=== PATIENT | male | born 1960 | race Caucasian/White ===

== ENCOUNTER 2020-09-28 09:24 | Day surgery (SDC) | payer OTHER ==
[2020-09-25 12:30] VITALS: BMI 30.1
[2020-09-28 10:29] VITALS: TEMP 98.5
[2020-09-28] MEDS ORDERED: LIDOCAINE 1% (10MG/ML) FOR IV START INTRADERMA ONE (10:31)
[2020-09-28] MEDS ORDERED: LACTATED RINGERS 1,000 ML IV ONE (10:31)
[2020-09-28] MEDS ORDERED: fentaNYL (PF) 50 MCG/ML 2 ML AMP ONE (11:05)
[2020-09-28] MEDS ORDERED: PROPOFOL 10 MG/ML 20 ML VIAL IV ONE (11:05)
[2020-09-28] MEDS ORDERED: LIDOCAINE 1% INJ 10MG/ML (20 ML MDV) ONE (11:05)
--- NOTE | 2020-09-28 11:36 | P.PCN ---
Date of Procedure: 09/28/20 Description of Procedure: BRIEF HISTORY: Patient is a 60-year-old male presenting for outpatient colonoscopy for screening for malignant neoplasm of the colon. He reports multiple colonoscopies in the past. He does report a prior history of high-risk colon polyps. PROCEDURE PERFORMED: Colonoscopy. PREOPERATIVE DIAGNOSIS: Screening for malignant neoplasm in the colon, patient reports last colonoscopy 3 years ago, he reports a history of high-risk colon polyps. ESTIMATED BLOOD LOSS: Minimal. IV sedation per Anesthesia. PROCEDURE: After informed consent was obtained, the patient, was brought into the endoscopy unit. IV sedation was administered by Anesthesia under continuous monitoring. Digital rectal examination was normal. Initially the Olympus CF-190 flexible video colonoscope was then inserted in the rectum, gradually advanced into the cecum without any difficulty. Careful examination was performed as the scope was gradually being withdrawn. Ileocecal valve and the appendiceal orifice were visualized and appeared normal. Prep was excellent. Mucosa of the cecum, asce nding colon, transverse colon, descending colon, sigmoid colon, and rectum appeared normal. Retroflexion was performed in the rectum and no lesions were seen, moderate internal hemorrhoids. The patient tolerated the procedure well. IMPRESSION: Normal-appearing colon from rectum to cecum. Internal hemorrhoids. RECOMMENDATIONS: Findings of this examination were discussed with the patient and his family. Okay to resume diet. Okay to resume medications. Would recommend repeat colonoscopy in 5 years for history of high risk colon polyps.
[2020-09-28 12:05] VITALS: BP 140/84; PULSE 59; RESP 16
== END 2020-09-28 12:15 | disposition home or self-care (01) ==
LOC: ORWHC2ENDO 09:24
PROVIDERS: ATTEND Internal Medicine
DX: Z12.11 Encounter for screening for malignant neoplasm of colon (principal); K64.8 Other hemorrhoids; Z86.010 Personal history of colon polyps; Z88.0 Allergy status to penicillin; Z79.02 Long term (current) use of antithrombotics/antiplatelets; Z79.899 Other long term (current) drug therapy; Z98.890 Other specified postprocedural states
CPT/HCPCS: J2001; J3010; J2704; G0105

== ENCOUNTER → 2022-01-03 | Outpatient (CLI) | payer OTHER ==
--- NOTE | 2022-01-03 16:23 | US ---
EXAMINATION TYPE: US abdomen complete DATE OF EXAM: 01/03/2022 COMPARISON: NONE CLINICAL HISTORY: 61-year-old male R79.9 abd blood chemistry. Abnormal labs, pt has no other complain ts at this time TECHNIQUE: Multiple sonographic images of the abdomen are obtained. FINDINGS: EXAM MEASUREMENTS: Liver Length: 17.2 cm Gallbladder Wall: 0.3 cm CBD: 0.6 cm Spleen: 14.4 cm Right Kidney: 12.3 x 6.1 x 5.3 cm Left Kidney: 13.1 x 5.8 x 5.2 cm Pancreas: Obscured by bowel gas Liver: Markedly coarsened and heterogeneous parenchyma. This makes assessment for focal lesions diffi cult. Gallbladder: Appeared distended, wall thickness upper limits of normal, possible small stones near n hortencia Evidence for sonographic Amaya's sign: No CBD: Borderline caliber Spleen: Enlarged Right Kidney: wnl, lower pole gassed out Left Kidney: wnl Upper IVC: Difficult to visualize due to overlying bowel gas and coarse liver Abd Aorta: Obscured by overlying bowel gas IMPRESSION: 1. Markedly heterogeneous and coarsened liver parenchyma. Correlate for nonspecific hepatocellular di sease or cirrhosis. The degree of heterogeneity makes it difficult to assess for underlying focal les ions. 2. Hydropic gallbladder. Borderline wall thickness and some possible small stones at the neck of the gallbladder. The sonographic Amaya sign is reportedly negative. Findings may represent chronic oswald cystitis or fasting state. Consider HIDA scan if symptomatic. 3. Splenomegaly. In the setting of cirrhosis/liver disease, this could reflect concurrent portal veno us hypertension. Appropriate further workup recommended.
== END | disposition home or self-care (01) ==
LOC: RADUSWWP 14:02
PROVIDERS: ATTEND Family Medicine
DX: R16.1 Splenomegaly, not elsewhere classified (principal); K82.1 Hydrops of gallbladder; K76.89 Other specified diseases of liver
CPT/HCPCS: 76700

== ENCOUNTER → 2022-04-05 | Outpatient (CLI) | payer OTHER ==
[2022-04-05 18:46] LABS: HCT 38.2 % (39.6-50.0); HGB 13.3 g/dL (13.0-17.0); MCH 38.7 pg (27.0-32.0); MCHC 34.8 g/dL (32.0-37.0); Mean Platelet Volume 10.6 fL (9.5-12.2); NRBC Per 100 WBC 0 /100 WBCS (0.0-0.0); Platelet Count 124 X 10*3/uL (140-440); RBC 3.44 X 10*6/uL (4.40-5.60); RDW 12.9 % (11.5-14.5); WBC 5.27 X 10*3/uL (4.50-10.00)
[2022-04-05 18:55] LABS: Hepatitis B Surface Antigen Nonreactive (Nonreactive); Hepatitis C IgG Antibody Nonreactive (Nonreactive)
[2022-04-05 19:13] LABS: African American GFR (CKD) 113.1 (60.0-200.0); Albumin 3.2 g/dL (3.8-4.9); Albumin/Globulin Ratio 0.67 (1.60-3.17); Anion Gap 10.6 mmol/L (10.00-18.00); BUN/Creat Ratio 10.43 Ratio (12.00-20.00); Blood Urea Nitrogen 8.3 mg/dL (9.0-27.0); Carbon Dioxide 25.5 mmol/L (20.0-27.5); Globulin 4.7 g/dL (1.6-3.3); Non-African American GFR(CKD) 97.6 (60.0-200.0); Total Bilirubin 5.8 mg/dL (0.30-1.20); Total Protein 7.9 g/dL (6.2-8.2)
[2022-04-05 20:04] LABS: Basophils # (A) 0.03 X 10*3/uL (0.00-0.10); Basophils % (A) 0.6 %; Eosinophils # (A) 0.12 X 10*3/uL (0.04-0.35); Eosinophils % (A) 2.3 %; Immature Grans, Automated 0.4 %; Lymphocytes # (A) 1.58 X 10*3/uL (0.90-5.00); Macrocytosis (M) 2+; Monocytes # (A) 0.53 X 10*3/uL (0.20-1.00); Monocytes % (A) 10.1 %; Neutrophils # (A) 2.99 X 10*3/uL (1.80-7.70); Neutrophils % (A) 56.6 %
== END | disposition home or self-care (01) ==
LOC: LABWHC1 14:27
PROVIDERS: ATTEND Internal Medicine Gastroenterology
DX: K76.0 Fatty (change of) liver, not elsewhere classified (principal); R74.01 Elevation of levels of liver transaminase levels
CPT/HCPCS: 36415; 80053; 85025; 86803; 87340

== ENCOUNTER 2023-02-12 09:44 | Inpatient (IN) | payer BC, OTHER ==
[2023-02-12] MEDS ORDERED: SODIUM CHLORIDE 0.9% 500 ML 500 ML IV ONE (10:02)
[2023-02-12 10:03] LABS: Glucose,Whole Blood 340 mg/dL (70-110)
--- NOTE | 2023-02-12 10:12 | ED ---
General Adult HPI - General Chief complaint: Altered Mental Status Stated complaint: AMS Time Seen by Provider: 02/12/23 09:55 Source: patient, family, RN notes reviewed, old records reviewed Mode of arrival: EMS Limitations: altered mental status - History of Present Illness Initial comments: This is a 62-year-old male who presents emergency department with past medical history significant for liver cancer. Patient has been treated with immunotherapy at [facility]. Patient was a drinker he quit Last February. Patient woke up this morning and was confused. Patient didn't come to bed and was noted to the was concerned when she saw him his morning he was not at his baseline. Patient himself has no complaints and he currently doesn't know wear he is but is unable to give any further history. - Related Data Home Medications Medication Instructions Recorded Confirmed Multivitamins, Thera [Multivitamin 1 tab PO DAILY 12/09/22 02/12/23 (formulary)] Insulin Aspart See Protocol SQ AC-TID 02/12/23 02/12/23 Insulin Glargine,Hum.rec.anlog 26 units SQ HS 02/12/23 02/12/23 [Lantus Solostar Pen] Mesalamine [Delzicol] 800 mg PO TID 02/12/23 02/12/23 Omeprazole [PriLOSEC] 40 mg PO DAILY 02/12/23 02/12/23 metroNIDAZOLE [metroNIDAZOLE 0.75%] 1 applic TOPICAL DAILY PRN 02/12/23 02/12/23 predniSONE See Taper PO DIRECTED 02/12/23 02/12/23 Allergies Allergy/AdvReac Type Severity Reaction Status Date / Time Penicillins Allergy Rash/Hives Verified 02/12/23 11:44 Review of Systems ROS Statement: Those systems with pertinent positive or pertinent negative responses have been documented in the HPI. ROS Other: All systems not noted in ROS Statement are negative. Past Medical History Past Medical History: Cancer, Hypertension, Skin Disorder Additional Past Medical History / Comment(s): colon polyps, liver cancer History of Any Multi-Drug Resistant Organisms: None Reported Past Surgical History: Orthopedic Surgery Additional Past Surgical History / Comment(s): left wrist, colonoscopy, paracentesis Past Anesthesia/Blood Transfusion Reactions: No Reported Reaction Past Psychological History: No Psychological Hx Reported Smoking Status: Never smoker Past Alcohol Use History: None Reported Past Drug Use History: None Reported - Past Family History Mother Family Medical History: Cancer Additional Family Medical History / Comment(s): throat General Exam - General Exam Comments Initial Comments: GENERAL: Patient is well-developed and well-nourished. Patient is nontoxic and well- hydrated and is in no acute distress. ENT: Neck is soft and supple. No significant lymphadenopathy is noted. Oropharynx is clear. Moist mucous membranes. Neck has full range of motion without eliciting any pain. EYES: The sclera icterus is present. Extraocular movements were intact and pupils were equal round and reactive to light. Eyelids were unremarkable. PULMONARY: Unlabored respirations. Good breath sounds bilaterally. No audible rales rhonchi or wheezing was noted. CARDIOVASCULAR: There is a regular rate and rhythm without any murmurs gallops or rubs. Femoral pulses are equal bilaterally ABDOMEN: Abdomen is distended consistent with ascites. states this is unchanged SKIN: Patient's skin is jaundiced NEUROLOGIC: Patient is alert and oriented 1. Cranial nerves II through XII are grossly intact. Motor and sensory are also intact. Normal speech, volume and content. Symmetrical smile. MUSCULOSKELETAL: Normal extremities with adequate strength and full range of motion. LYMPHATICS: No significant lymphadenopathy is noted PSYCHIATRIC: Unable to assess Limitations: altered mental status Course Vital Signs 02/12/23 02/12/23 09:48 12:11 Temperature 97.7 F Pulse Rate 77 67 Respiratory 19 19 Rate Blood Pressure 143/76 130/71 O2 Sat by Pulse 96 99 Oximetry Medical Decision Making - Medical Decision Making I interpret EKG EKG shows sinus rhythm 83 bpm TN interval 167 dresses 80 QT interval 359 QTC is 399. Patient's EKG shows no ST segment elevation or depression. Was pt. sent in by a medical professional or institution (, PA, [employer], urgent care, hospital, or half-way...) When possible be specific @ -No Did you speak to anyone other than the patient for history (EMS, parent, family, police, friend...)? What history was obtained from this source @ - gave all the history Did you review nursing and triage notes (agree or disagree)? Why? @ -I reviewed and agree with nursing and triage notes Were old charts reviewed (outside hosp., previous admission, EMS record, old EKG, old radiological studies, urgent care reports/EKG's, half-way records)? Report findings @ -I reviewed prior laboratory results on this patient compared to today's results Differential Diagnosis (chest pain, altered mental status, abdominal pain women, abdominal pain men, vaginal bleeding, weakness, fever, dyspnea, syncope, headache, dizziness, GI bleed, back pain, seizure, CVA, palpatations, mental health, musculoskeletal)? @ -Differential Altered Mental Status: Hypoglycemia, DKA, hypercapnia, ETOH, overdose, CO poisoning, trauma, myxedema coma, HTN encephalopathy, infection, encephalitis, psychosis, intercranial hemorrhage, hepatic encephalopathy, meningitis, CVA, this is not meant to be an all-inclusive list EKG interpreted by me (3pts min.). @ -As above X-rays interpreted by me (1pt min.). @ -Chest x-ray is interpreted by myself as no acute abnormality. CT interpreted by me (1pt min.). @ -CT of the brain was interpreted by myself I saw no acute abnormality U/S interpreted by me (1pt. min.). @ -None done What testing was considered but not performed or refused? (CT, X-rays, U/S, labs)? Why? @ -None What meds were considered but not given or refused? Why? @ -None Did you discuss the management of the patient with other professionals (professionals i.e. , PA, [employer], lab, RT, psych nurse, social insurance specialist, receiving manager, teacher, promotion officer, field nurse case manager)? Give summary @ -Spoke with Dr. Gusman she agreed to admit the patient admitted the patient I wrote admitting orders Was smoking cessation discussed for >3mins.? @ -No Was critical care preformed (if so, how long)? @ -No Were there social determinants of health that impacted care today? How? (Homelessness, low income, unemployed, alcoholism, drug addiction, t ransportation, low edu. Level, literacy, decrease access to med. care, alf, rehab)? @ -No Was there de-escalation of care discussed even if they declined (Discuss DNR or withdrawal of care, Hospice)? DNR status @ -No What co-morbidities impacted this encounter? (DM, HTN, Smoking, COPD, CAD, Cancer, CVA, ARF, Chemo, Hep., AIDS, mental health diagnosis, sleep apnea, morbid obesity)? @ -None Was patient admitted / discharged? Hospital course, mention meds given and route, prescriptions, significant lab abnormalities, going to OR and other pertinent info. @ -Patient had lab work done as well as CAT scan of the brain CAT scan of the brain was normal. Lab work showed an ammonia level of 45 was started at this time that his altered mental status could be directly related to that. Spoke with Dr. Gusman she agreed to admit the patient admitted the patient started patient on lactulose Undiagnosed new problem with uncertain prognosis? @ -No Drug Therapy requiring intensive monitoring for toxicity (Heparin, Nitro, Insulin, Cardizem)? @ -No Were any procedures done? @ -No Diagnosis/symptom? @ -Hepatic encephalopathy Acute, or Chronic, or Acute on Chronic? @ -Acute on chronic Uncomplicated (without systemic symptoms) or Complicated (systemic symptoms)? @ -Complicated Side effects of treatment? @ -No Exacerbation, Progression, or Severe Exacerbation? @ -Severe exacerbation. Poses a threat to life or bodily function? How? (Chest pain, [place], [place], pneumonia, PE, COPD, DKA, ARF, appy, cholecystitis, CVA, Diverticulitis, Homicidal, Yudi cidal, threat to staff... and all critical care pts) @ -No - Lab Data Result diagrams: 02/12/23 10:07 02/12/23 10:07 Lab Results 02/12/23 02/12/23 02/12/23 Range/Units 10:02 10:07 10:07 WBC 10.3 (3.8-10.6) k/uL RBC 3.42 L (4.30-5.90) m/uL Hgb 12.9 L (13.0-17.5) gm/dL Hct 39.6 (39.0-53.0) % MCV 115.5 H (80.0-100.0) fL MCH 37.7 H (25.0-35.0) pg MCHC 32.6 (31.0-37.0) g/dL RDW 15.4 (11.5-15.5) % Plt Count 80 L (150-450) k/uL MPV 8.6 Neutrophils % 87 % Lymphocytes % 6 % Monocytes % 4 % Eosinophils % 1 % Basophils % 0 % Neutrophils # 9.0 H (1.3-7.7) k/uL Lymphocytes # 0.6 L (1.0-4.8) k/uL Monocytes # 0.4 (0-1.0) k/uL Eosinophils # 0.1 (0-0.7) k/uL Basophils # 0.0 (0-0.2) k/uL Manual Slide Review Performed Macrocytosis Marked A PT 16.0 H (9.0-12.0) sec INR 1.6 H (<1.2) APTT 27.9 (22.0-30.0) sec Sodium (137-145) mmol/L Potassium (3.5-5.1) mmol/L Chloride (98-107) mmol/L Carbon Dioxide (22-30) mmol/L Anion Gap mmol/L BUN (9-20) mg/dL Creatinine (0.66-1.25) mg/dL Est GFR (CKD-EPI)AfAm (>60 ml/min/1.73 sqM) Est GFR (CKD-EPI)NonAf (>60 ml/min/1.73 sqM) Glucose (74-99) mg/dL POC Glucose (mg/dL) 340 H (70-110) mg/dL POC Glu [employer] ID [place] Calcium (8.4-10.2) mg/dL Total Bilirubin (0.2-1.3) mg/dL AST (17-59) U/L ALT (4-49) U/L Alkaline Phosphatase (38-126) U/L Ammonia (<30) umol/L Troponin I (0.000-0.034) ng/mL Total Protein (6.3-8.2) g/dL Albumin (3.5-5.0) g/dL Urine Opiates Screen (NotDetected) Ur Oxycodone Screen (NotDetected) Urine Methadone Screen (NotDetected) Ur Propoxyphene Screen (NotDetected) Ur Barbiturates Screen (NotDetected) U Tricyclic Antidepress (NotDetected) Ur Phencyclidine Scrn (NotDetected) Ur Amphetamines Screen (NotDetected) U Methamphetamines Scrn (NotDetected) U Benzodiazepines Scrn (NotDetected) Urine Cocaine Screen (NotDetected) U Marijuana (THC) Screen (NotDetected) Acetone, Qual (Negative) 02/12/23 02/12/23 02/12/23 Range/Units 10:07 10:07 10:07 WBC (3.8-10.6) k/uL RBC (4.30-5.90) m/uL Hgb (13.0-17.5) gm/dL Hct (39.0-53.0) % MCV (80.0-100.0) fL MCH (25.0-35.0) pg MCHC (31.0-37.0) g/dL RDW (11.5-15.5) % Plt Count (150-450) k/uL MPV Neutrophils % % Lymphocytes % % Monocytes % % Eosinophils % % Basophils % % Neutrophils # (1.3-7.7) k/uL Lymphocytes # (1.0-4.8) k/uL Monocytes # (0-1.0) k/uL Eosinophils # (0-0.7) k/uL Basophils # (0-0.2) k/uL Manual Slide Review Macrocytosis PT (9.0-12.0) sec INR (<1.2) APTT (22.0-30.0) sec Sodium 135 L (137-145) mmol/L Potassium 4.3 (3.5-5.1) mmol/L Chloride 100 (98-107) mmol/L Carbon Dioxide 28 (22-30) mmol/L Anion Gap 7 mmol/L BUN 30 H (9-20) mg/dL Creatinine 0.75 (0.66-1.25) mg/dL Est GFR (CKD-EPI)AfAm >90 (>60 ml/min/1.73 sqM) Est GFR (CKD-EPI)NonAf >90 (>60 ml/min/1.73 sqM) Glucose 357 H (74-99) mg/dL POC Glucose (mg/dL) (70-110) mg/dL POC Glu [employer] ID Calcium 8.9 (8.4-10.2) mg/dL Total Bilirubin 10.7 H (0.2-1.3) mg/dL AST 85 H (17-59) U/L ALT 109 H (4-49) U/L Alkaline Phosphatase 200 H (38-126) U/L Ammonia 45 H (<30) umol/L Troponin I (0.000-0.034) ng/mL Total Protein 7.3 (6.3-8.2) g/dL Albumin 3.3 L (3.5-5.0) g/dL Urine Opiates Screen Not Detected (NotDetected) Ur Oxycodone Screen Not Detected (NotDetected) Urine Methadone Screen Not Detected (NotDetected) Ur Propoxyphene Screen Not Detected (NotDetected) Ur Barbiturates Screen Not Detected (NotDetected) U Tricyclic Antidepress Not Detected (NotDetected) Ur Phencyclidine Scrn Not Detected (NotDetected) Ur Amphetamines Screen Not Detected (NotDetected) U Methamphetamines Scrn Not Detected (NotDetected) U Benzodiazepines Scrn Not Detected (NotDetected) Urine Cocaine Screen Not Detected (NotDetected) U Marijuana (THC) Screen Not Detected (NotDetected) Acetone, Qual Negative (Negative) 02/12/23 Range/Units 10:07 WBC (3.8-10.6) k/uL RBC (4.30-5.90) m/uL Hgb (13.0-17.5) gm/dL Hct (39.0-53.0) % MCV (80.0-100.0) fL MCH (25.0-35.0) pg MCHC (31.0-37.0) g/dL RDW (11.5-15.5) % Plt Count (150-450) k/uL MPV Neutrophils % % Lymphocytes % % Monocytes % % Eosinophils % % Basophils % % Neutrophils # (1.3-7.7) k/uL Lymphocytes # (1.0-4.8) k/uL Monocytes # (0-1.0) k/uL Eosinophils # (0-0.7) k/uL Basophils # (0-0.2) k/uL Manual Slide Review Macrocytosis PT (9.0-12.0) sec INR (<1.2) APTT (22.0-30.0) sec Sodium (137-145) mmol/L Potassium (3.5-5.1) mmol/L Chloride (98-107) mmol/L Carbon Dioxide (22-30) mmol/L Anion Gap mmol/L BUN (9-20) mg/dL Creatinine (0.66-1.25) mg/dL Est GFR (CKD-EPI)AfAm (>60 ml/min/1.73 sqM) Est GFR (CKD-EPI)NonAf (>60 ml/min/1.73 sqM) Glucose (74-99) mg/dL POC Glucose (mg/dL) (70-110) mg/dL POC Glu [employer] ID Calcium (8.4-10.2) mg/dL Total Bilirubin (0.2-1.3) mg/dL AST (17-59) U/L ALT (4-49) U/L Alkaline Phosphatase (38-126) U/L Ammonia (<30) umol/L Troponin I <0.012 (0.000-0.034) ng/mL Total Protein (6.3-8.2) g/dL Albumin (3.5-5.0) g/dL Urine Opiates Screen (NotDetected) Ur Oxycodone Screen (NotDetected) Urine Methadone Screen (NotDetected) Ur Propoxyphene Screen (NotDetected) Ur Barbiturates Screen (NotDetected) U Tricyclic Antidepress (NotDetected) Ur Phencyclidine Scrn (NotDetected) Ur Amphetamines Screen (NotDetected) U Methamphetamines Scrn (NotDetected) U Benzodiazepines Scrn (NotDetected) Urine Cocaine Screen (NotDetected) U Marijuana (THC) Screen (NotDetected) Acetone, Qual (Negative) Disposition Clinical Impression: Hepatic encephalopathy Disposition: ADMITTED IP TO THIS HOSP Condition: Good Referrals: Corby Loo DO [Primary Care Provider] - 1-2 days Time of Disposition: 13:15
[2023-02-12 10:18] LABS: Basophils % (A) 0 %; Eosinophils # (A) 0.1 k/uL (0-0.7); Eosinophils % (A) 1 %; HCT 39.6 % (39.0-53.0); HGB 12.9 gm/dL (13.0-17.5); Lymphocytes # (A) 0.6 k/uL (1.0-4.8); Lymphocytes % (A) 6 %; MCH 37.7 pg (25.0-35.0); MCHC 32.6 g/dL (31.0-37.0); MCV 115.5 fL (80.0-100.0); Macrocytosis Marked; Mean Platelet Volume 8.6; Monocytes # (A) 0.4 k/uL (0-1.0); Monocytes % (A) 4 %; Neutrophils % (A) 87 %; RBC 3.42 m/uL (4.30-5.90); RDW 15.4 % (11.5-15.5); WBC 10.3 k/uL (3.8-10.6)
[2023-02-12 10:31] LABS: ALT 109 U/L (4-49); AST 85 U/L (17-59); African American GFR (CKD) >90 (>60 ml/min/1.73 sqM); Albumin 3.3 g/dL (3.5-5.0); Alkaline Phosphatase 200 U/L (38-126); Anion Gap 7 mmol/L; Blood Urea Nitrogen 30 mg/dL (9-20); Calcium 8.9 mg/dL (8.4-10.2); Carbon Dioxide 28 mmol/L (22-30); Chloride 100 mmol/L (98-107); Glucose 357 mg/dL (74-99); Non-African American GFR(CKD) >90 (>60 ml/min/1.73 sqM); Potassium 4.3 mmol/L (3.5-5.1); Sodium 135 mmol/L (137-145); Total Bilirubin 10.7 mg/dL (0.2-1.3); Total Protein 7.3 g/dL (6.3-8.2)
[2023-02-12 10:39] LABS: INR 1.6 (<1.2); Partial Thromboplastin Time 27.9 sec (22.0-30.0)
--- NOTE | 2023-02-12 10:46 | XR ---
EXAMINATION TYPE: XR chest 2V DATE OF EXAM: 02/12/2023 COMPARISON: None HISTORY: 62-year-old male confusion, altered mental status TECHNIQUE: AP stretcher and lateral views FINDINGS: Patient rotated towards the right altering the normal cardiac mediastinal contours. Heart likely bord mohinder enlarged. There are small to moderate right and small left pleural effusions. Interstitial pro minence noted. IMPRESSION: [id number] right and small left pleural effusions with adjacent atelectasis and/or consolidati on. Given interstitial prominence, correlate for possible CHF as an etiology.
--- NOTE | 2023-02-12 10:55 | CT ---
EXAMINATION TYPE: CT brain wo con DATE OF EXAM: 02/12/2023 COMPARISON: None HISTORY: 62-year-old male AMS. RECENTLY DIAGNOSED W/LIVER CA TECHNIQUE: Examination was done in axial plane without intravenous contrast. Coronal and sagittal r econstructions performed. CT DLP: 1267.4 mGycm Automated exposure control for dose reduction was used. FINDINGS: There is no evidence of acute intracranial hemorrhage, acute ischemic changes, mass, mass-effect, or extra-axial fluid collection. There is no effacement of cerebral sulci or basal subarachnoid cister ns. There is no hydrocephalus. There is no midline shift. Fiore-white matter distinction is preserv ed. Atherosclerotic calcifications in the carotid siphons and proximal V4 segment left vertebral artery. There is moderate volume loss along the bilateral cerebral convexities. Mild patchy white matter hypo densities in both cerebral hemispheres. Leftward nasal septal deviation. The sinuses and mastoid air cells are well pneumatized. Orbits and globes are intact. IMPRESSION: Moderate cerebral atrophy and mild burden of chronic small vessel ischemic disease. No acute intracra nial abnormality seen.
[2023-02-12 11:26] LABS: Platelet Count 80 k/uL (150-450)
[2023-02-12 11:32] LABS: Amphetamine Screen,Urine Not Detected (NotDetected); Barbiturate Screen,Urine Not Detected (NotDetected); Benzodiazepines Screen,Urine Not Detected (NotDetected); Cocaine Screen,Urine Not Detected (NotDetected); Methadone Screen, Urine Not Detected (NotDetected); Opiate Screen,Urine Not Detected (NotDetected); Oxycodone Screen, Urine Not Detected (NotDetected); Phencyclidine Screen,Urine Not Detected (NotDetected); Tricyclic Antidepressant,Urine Not Detected (NotDetected); Urn Cannabinoid Scrn Not Detected (NotDetected)
[2023-02-12] MEDS ORDERED: SODIUM CHLORIDE 0.9% 1,000 ML IV ONE (13:15)
[2023-02-12] MEDS ORDERED: DEXTROSE 50% SYRINGE 50 ML IVP PRN ×2 (14:47)
[2023-02-12] MEDS ORDERED: NALOXONE 0.4 MG/ML 1 ML VIAL IV PRN (14:50)
[2023-02-12] MEDS ORDERED: ONDANSETRON 4 MG/2 ML VIAL IVP PRN (14:50)
[2023-02-12] MEDS ORDERED: MAG HYDROX/AL HYDROX/SIMETH 30 ML CUP PO PRN (14:50)
--- NOTE | 2023-02-12 14:58 | P.HPIM ---
History of Present Illness H&P Date: 02/12/23 Patient is a 62-year-old male with PMH of liver cancer following Dr. Burgess out of [place] presents the ED for worsening confusion. Patient is currently sedated and majority of the history is obtained by his Antonio. Patient was initially diagnosed with liver cancer in October at [facility]. He has been getting his oncological treatment at [facility]. Of note, patient was recently hospitalized at [facility] from January 27 - February 02 for hyponatremia, hyperkalemia, hypermagnesemia and elevated blood glucose. He was diagnosed with diabetes mellitus and discharge home on insulin for the first time. He also underwent colonoscopy for chronic diarrhea. The is unsure what he was diagnosed with but noted that he was sent home on prednisone taper and mesalamine which he was currently taking. He recently underwent an immunotherapy infusion (unknown medication) on . On Monday, his noted that he woke up confused and unable to recognize who she was. She initially thought that it was a hypoglycemic episode for which she gave him juice. Accu-Chek after treatment was in the 300s. Today, she noted that he was extremely confused this morning and the patient had soiled himself. This prompted her to call EMS. In the ED, his vital signs were stable. At the time of my interview he was sleeping. CBC showed hemoglobin of 12.9 and MCV of 115.5 with platelet count of 80. INR was 1.6. CMP showed sodium of 135, BUN of 30, glucose of 357, total bilirubin of 10.7, AST of 85, ALT of 109, alkaline phosphatase of 200. Troponin was less than 0.012, EKG showed sinus rhythm with ventricular rate of 83. UDS and acetone was negative. Ammonia level was 45. Chest x-ray showed small to moderate bilateral pleural effusion. CT brain showed moderate cerebral atrophy with chronic small vessel disease with no acute intracranial findings. Patient is admitted for hepatic encephalopathy. Pertinent positives and negatives as discussed in HPI, a complete review of systems was performed and all other systems are negative. General: Appears older than stated age, no distress, appears at stated age Derm: warm, dry, jaundiced Head: atraumatic, normocephalic, symmetric Eyes: no lid lag, anicteric sclera Mouth: no lip lesion, mucus membranes moist Cardiovascular: S1S2 reg, no murmur, positive posterior tibial pulse bilateral, Lungs: CTA bilateral, no rhonchi, no rales , no accessory muscle use Abdominal: soft, nontender to palpation, no guarding, hepatomegaly, distended Ext: no gross muscle atrophy, 2+ pitting bilateral lower extremity edema, no contractures Neuro: no focal neuro deficits Psych: Sleeping #Hepatic encephalopathy #Liver cancer #Transaminitis #Macrocytic anemia #Thrombocytopenia #Supratherapeutic INR #Diabetes mellitus with hyperglycemia Based on my assessment of this patient, this patient meets a high complexity level of care. I have reviewed the following oracle iam consultant notes: None. I have reviewed the results of the following tests: CBC showed hemoglobin of 12.9 and MCV of 115.5 with platelet count of 80. INR was 1.6. CMP showed sodium of 135, BUN of 30, glucose of 357, total bilirubin of 10.7, AST of 85, ALT of 109, alkaline phosphatase of 200. Troponin was less than 0.012. UDS and acetone was negative. Ammonia level was 45. I have ordered the following tests: B12, TSH and folic acid. Repeat ammonia level tomorrow morning. CBC and CMP tomorrow morning. Urinalysis with reflex to culture. I have discussed the care of this patient with the following independent historian: Case was discussed with the . Patient has short-term memory loss at baseline. This is clearly a change from his baseline. I have independently interpreted the following test below: EKG showed sinus rhythm with ventricular rate of 83. Chest x-ray showed small to moderate bilateral pleural effusion. I have discussed the management of this patient with the following physician: The case was discussed with the ED physician and decision has been made to admit the patient for workup of altered mental status. This patient has a high risk of morbidity due to the following reasons: Patient has an acute diagnosis of acute metabolic encephalopathy in the setting of advanced liver cancer and recent initiation of prednisone that poses a threat to life or bodily function. His ammonia is elevated at 45. He'll be started on lactulose 30 g by mouth 3 times a day and his ammonia level will be checked tomorrow. I will hold his prednisone as this could be worsening his mentation. I will obtain B12, TSH and folic acid. Urinalysis will be obtained. We will need to get in touch with his oncologist Dr. Ware at [facility]. Patient will be placed on fall precautions. Oncology and gastroenterology will also be consulted for further management of this patient. PT and OT will be consulted to work with this patient. His Antonio is the decision maker if he can't make decisions for himself. She would like the patient to be full code. Lovenox SQ for DVT prophylaxis. Past Medical History Past Medical History: Cancer, Hypertension, Skin Disorder Additional Past Medical History / Comment(s): colon polyps, liver cancer History of Any Multi-Drug Resistant Organisms: None Reported Past Surgical History: Orthopedic Surgery Additional Past Surgical History / Comment(s): left wrist, colonoscopy, paracentesis Past Anesthesia/Blood Transfusion Reactions: No Reported Reaction Past Psychological History: No Psychological Hx Reported Smoking Status: Never smoker Past Alcohol Use History: None Reported Past Drug Use History: None Reported - Past Family History Mother Family Medical History: Cancer Additional Family Medical History / Comment(s): throat Medications and Allergies Home Medications Medication Instructions Recorded Confirmed Type Multivitamins, Thera [Multivitamin 1 tab PO DAILY 12/09/22 02/12/23 History (formulary)] Insulin Aspart See Protocol SQ AC-TID 02/12/23 02/12/23 History Insulin Glargine,Hum.rec.anlog 26 units SQ HS 02/12/23 02/12/23 History [Lantus Solostar Pen] Mesalamine [Delzicol] 800 mg PO TID 02/12/23 02/12/23 History Omeprazole [PriLOSEC] 40 mg PO DAILY 02/12/23 02/12/23 History metroNIDAZOLE [metroNIDAZOLE 0.75%] 1 applic TOPICAL DAILY PRN 02/12/23 02/12/23 History predniSONE See Taper PO DIRECTED 02/12/23 02/12/23 History Allergies Allergy/AdvReac Type Severity Reaction Status Date / Time Penicillins Allergy Rash/Hives Verified 02/12/23 11:44 Physical Exam Vitals: Vital Signs Temp Pulse Resp BP Pulse Ox 02/12/23 14:53 97.8 F 63 19 140/71 93 L 02/12/23 12:11 67 19 130/71 99 02/12/23 09:48 97.7 F 77 19 143/76 96 Intake and Output 02/11/23 02/12/23 02/12/23 22:59 06:59 14:59 Other: Weight 73.482 kg Results CBC & Chem 7: 02/12/23 10:07 02/12/23 10:07 Labs: Abnormal Lab Results - Last 24 Hours (Table) 02/12/23 02/12/23 02/12/23 Range/Units 10:02 10:07 10:07 RBC 3.42 L (4.30-5.90) m/uL Hgb 12.9 L (13.0-17.5) gm/dL MCV 115.5 H (80.0-100.0) fL MCH 37.7 H (25.0-35.0) pg Plt Count 80 L (150-450) k/uL Neutrophils # 9.0 H (1.3-7.7) k/uL Lymphocytes # 0.6 L (1.0-4.8) k/uL Macrocytosis Marked A PT 16.0 H (9.0-12.0) sec INR 1.6 H (<1.2) Sodium (137-145) mmol/L BUN (9-20) mg/dL Glucose (74-99) mg/dL POC Glucose (mg/dL) 340 H (70-110) mg/dL Total Bilirubin (0.2-1.3) mg/dL AST (17-59) U/L ALT (4-49) U/L Alkaline Phosphatase (38-126) U/L Ammonia (<30) umol/L Albumin (3.5-5.0) g/dL 02/12/23 02/12/23 Range/Units 10:07 10:07 RBC (4.30-5.90) m/uL Hgb (13.0-17.5) gm/dL MCV (80.0-100.0) fL MCH (25.0-35.0) pg Plt Count (150-450) k/uL Neutrophils # (1.3-7.7) k/uL Lymphocytes # (1.0-4.8) k/uL Macrocytosis PT (9.0-12.0) sec INR (<1.2) Sodium 135 L (137-145) mmol/L BUN 30 H (9-20) mg/dL Glucose 357 H (74-99) mg/dL POC Glucose (mg/dL) (70-110) mg/dL Total Bilirubin 10.7 H (0.2-1.3) mg/dL AST 85 H (17-59) U/L ALT 109 H (4-49) U/L Alkaline Phosphatase 200 H (38-126) U/L Ammonia 45 H (<30) umol/L Albumin 3.3 L (3.5-5.0) g/dL
[2023-02-12] MEDS: BALSALAZIDE DISODIUM 750 MG CAPSULE PO SCH ×2 (16:34→21:14)
[2023-02-12] MEDS: LACTULOSE 20 GM/30 ML CUP PO SCH ×2 (16:34→21:14)
[2023-02-12 17:27] LABS: Glucose,Whole Blood 251 mg/dL (70-110)
[2023-02-12] MEDS: INSULIN ASPART (NovoLOG) 100 UNIT/ML VIAL SQ SCH ×2 (17:38→21:14)
[2023-02-12 20:45] LABS: Glucose,Whole Blood 175 mg/dL (70-110)
[2023-02-13 05:08] LABS: Appearance,Urine Clear (Clear); Bilirubin,Urine 1+ (Negative); Blood,Urine Negative (Negative); Color,Urine Dark Yellow; Glucose,Urine (UA) 3+ (Negative); Ketones,Urine Negative (Negative); Leukocyte Esterase,Urine Negative (Negative); Nitrite,Urine Negative (Negative); Protein,Urine Negative (Negative); Specific Gravity,Urine 1.025 (1.001-1.035)
[2023-02-13 07:34] LABS: Glucose,Whole Blood 133 mg/dL (70-110)
[2023-02-13] MEDS: INSULIN ASPART (NovoLOG) 100 UNIT/ML VIAL SQ SCH ×4 (08:00→21:06)
[2023-02-13] MEDS: PANTOPRAZOLE 40 MG TABLET PO SCH (08:41)
[2023-02-13] MEDS: BALSALAZIDE DISODIUM 750 MG CAPSULE PO SCH ×3 (08:41→21:06)
[2023-02-13] MEDS: LACTULOSE 20 GM/30 ML CUP PO SCH ×3 (08:42→21:06)
[2023-02-13] MEDS: ENOXAPARIN 40 MG/0.4 ML SYRINGE SQ SCH (08:42)
[2023-02-13 10:10] LABS: Magnesium 1.7 mg/dL (1.5-2.4)
[2023-02-13 10:11] LABS: ALT 96 U/L (10-49); AST 108 U/L (14-35); African American GFR (CKD) 107.2 (60.0-200.0); Albumin 2.8 g/dL (3.8-4.9); Alkaline Phosphatase 160 U/L (41-126); Blood Urea Nitrogen 24.3 mg/dL (9.0-27.0); Calcium 8.6 mg/dL (8.7-10.3); Carbon Dioxide 19.5 mmol/L (20.0-27.5); Chloride 105 mmol/L (96-109); Globulin 3.1 g/dL (1.6-3.3); Glucose 190 mg/dL (70-110); Non-African American GFR(CKD) 92.5 (60.0-200.0); Potassium 4.7 mmol/L (3.5-5.5); Sodium 140 mmol/L (135-145); Total Protein 5.9 g/dL (6.2-8.2); Vitamin B12 >1800.0 pg/mL (200.0-944.0)
[2023-02-13 11:45] LABS: Glucose,Whole Blood 229 mg/dL (70-110)
--- NOTE | 2023-02-13 12:21 | P.PN ---
Subjective Progress Note Date: 02/13/23 Patient is a 62-year-old male with PMH of liver cancer following Dr. Burgess out of [place] presents the ED for worsening confusion. Patient is currently sedated and majority of the history is obtained by his Antonio. Patient was initially diagnosed with liver cancer in October at [facility]. He has been getting his oncological treatment at [facility]. Of note, patient was recently hospitalized at [facility] from January 27 - February 02 for hyponatremia, hyperkalemia, hypermagnesemia and elevated blood glucose. He was diagnosed with diabetes mellitus and discharge home on insulin for the first time. He also underwent colonoscopy for chronic diarrhea. The is unsure what he was diagnosed with but noted that he was sent home on prednisone taper and mesalamine which he was currently taking. He recently underwent an immunotherapy infusion (unknown medication) on . On Monday, his noted that he woke up confused and unable to recognize who she was. She initially thought that it was a hypoglycemic episode for which she gave him juice. Accu-Chek after treatment was in the 300s. Today, she noted that he was extremely confused this morning and the patient had soiled himself. This prompted her to call EMS. In the ED, his vital signs were stable. At the time of my interview he was sleeping. CBC showed hemoglobin of 12.9 and MCV of 115.5 with platelet count of 80. INR was 1.6. CMP showed sodium of 135, BUN of 30, glucose of 357, total bilirubin of 10.7, AST of 85, ALT of 109, alkaline phosphatase of 200. Troponin was less than 0.012, EKG showed sinus rhythm with ventricular rate of 83. UDS and acetone was negative. Ammonia level was 45. Chest x-ray showed small to moderate bilateral pleural effusion. CT brain showed moderate cerebral atrophy with chronic small vessel disease with no acute intracranial findings. Patient is admitted for hepatic encephalopathy. Repeat ammonia level was elevated at 64. TSH, B12 and folate acid was within normal limits. Patient was seen and examined this morning. No acute events overnight. His is at bedside. His mentation has considerably improved during his hospitalization. He has no complaints today. General: Appears older than stated age, no distress, appears at stated age Derm: warm, dry, jaundiced Head: atraumatic, normocephalic, symmetric Eyes: no lid lag, anicteric sclera Mouth: no lip lesion, mucus membranes moist Cardiovascular: S1S2 reg, no murmur Lungs: CTA bilateral, no rhonchi, no rales , no accessory muscle use Abdominal: soft, nontender to palpation, no guarding, hepatomegaly, distended Ext: no gross muscle atrophy, 2+ pitting bilateral lower extremity edema, no contractures Neuro: no focal neuro deficits Psych: Alert and oriented 3 #Hepatic encephalopathy #Liver cancer #Transaminitis #Macrocytic anemia #Thrombocytopenia #Supratherapeutic INR #Diabetes mellitus with hyperglycemia Based on my assessment of this patient, this patient meets a moderate complexity level of care. I have reviewed the following financial planning consultant notes: None. I have reviewed the results of the following tests: CMP shows a bicarb of 19.5, glucose 190, calcium of 8.6, total bilirubin of 9.5, AST of 108, ALT of 96, alkaline phosphatase of 160. Ammonia 64. TSH 0.27. Folate greater than 20. B12 greater than 1800. Urinalysis shows 3+ glucose and 1+ bilirubin. I have ordered the following tests: Gallbladder and liver ultrasound. Repeat ammonia level tomorrow morning. I have discussed the care of this patient with the following independent historian: Case was discussed with the . Patient has short-term memory loss at baseline. His mentation has considerably improved and he is almost back to baseline. I have independently interpreted the following test below: None. I have discussed the management of this patient with the following physician: None. This patient has a moderate risk of morbidity due to the following reasons: Patient has an acute diagnosis of acute metabolic encephalopathy in the setting of advanced liver cancer and recent initiation of prednisone that poses a threat to life or bodily function. His ammonia is elevated at 64 this morning which is higher than admission. He'll be continued on lactulose 30 g by mouth 3 times a day and his ammonia level will be checked tomorrow. I will hold his prednisone as this could be worsening his mentation. B12, TSH and folic acid is within normal limits. Urinalysis negative for UTI. We will need to get in touch with his oncologist Dr. Ware at [facility]. Patient will be placed on fall prec autions. Oncology and gastroenterology will also be consulted for further management of this patient. PT and OT will be consulted to work with this patient. Anticipated discharge home tomorrow if ammonia level is trending down. His Antonio is the decision maker if he can't make decisions for himself. She would like the patient to be full code. Lovenox SQ for DVT prophylaxis. Objective - Vital Signs Vital signs: Vital Signs Temp 97.5 F L 02/13/23 11:51 Pulse 94 02/13/23 11:51 Resp 18 02/13/23 11:51 BP 129/74 02/13/23 11:51 Pulse Ox 95 02/13/23 11:51 FiO2 Intake & Output 02/12/23 02/13/23 02/13/23 18:59 06:59 18:59 Intake Total 120 200 Output Total 100 Balance 20 200 Weight 73.482 kg Intake: Oral 120 200 Output: Urine 100 Other: Voiding Method Toilet # Voids 2 # Bowel Movements 1 - Labs CBC & Chem 7: 02/12/23 10:07 02/13/23 04:22 Labs: Abnormal Lab Results - Last 24 Hours (Table) 02/12/23 02/12/23 02/12/23 Range/Units 10:07 17:26 20:27 Carbon Dioxide (20.0-27.5) mmol/L BUN/Creatinine Ratio (12.00-20.00) Ratio Glucose (70-110) mg/dL POC Glucose (mg/dL) 251 H 175 H (70-110) mg/dL Calcium (8.7-10.3) mg/dL Total Bilirubin (0.30-1.20) mg/dL AST (14-35) U/L ALT (10-49) U/L Alkaline Phosphatase (41-126) U/L Ammonia (<30) umol/L Total Protein (6.2-8.2) g/dL Albumin (3.8-4.9) g/dL Albumin/Globulin Ratio (1.60-3.17) g/dL Vitamin B12 (200.0-944.0) pg/mL Urine Glucose (UA) 3+ H (Negative) Urine Bilirubin 1+ H (Negative) 02/13/23 02/13/23 02/13/23 Range/Units 04:22 04:22 07:31 Carbon Dioxide 19.5 L (20.0-27.5) mmol/L BUN/Creatinine Ratio 27.00 H (12.00-20.00) Ratio Glucose 190 H (70-110) mg/dL POC Glucose (mg/dL) 133 H (70-110) mg/dL Calcium 8.6 L (8.7-10.3) mg/dL Total Bilirubin 9.50 H (0.30-1.20) mg/dL AST 108 H (14-35) U/L ALT 96 H (10-49) U/L Alkaline Phosphatase 160 H (41-126) U/L Ammonia 64 H (<30) umol/L Total Protein 5.9 L (6.2-8.2) g/dL Albumin 2.8 L (3.8-4.9) g/dL Albumin/Globulin Ratio 0.90 L (1.60-3.17) g/dL Vitamin B12 >1800.0 H (200.0-944.0) pg/mL Urine Glucose (UA) (Negative) Urine Bilirubin (Negative) 02/13/23 Range/Units 11:02 Carbon Dioxide (20.0-27.5) mmol/L BUN/Creatinine Ratio (12.00-20.00) Ratio Glucose (70-110) mg/dL POC Glucose (mg/dL) 229 H (70-110) mg/dL Calcium (8.7-10.3) mg/dL Total Bilirubin (0.30-1.20) mg/dL AST (14-35) U/L ALT (10-49) U/L Alkaline Phosphatase (41-126) U/L Ammonia (<30) umol/L Total Protein (6.2-8.2) g/dL Albumin (3.8-4.9) g/dL Albumin/Globulin Ratio (1.60-3.17) g/dL Vitamin B12 (200.0-944.0) pg/mL Urine Glucose (UA) (Negative) Urine Bilirubin (Negative)
[2023-02-13] MEDS ORDERED: PHYTONADIONE 5 MG in SODIUM CHLORIDE 0.9% 50 ML IVPB STA (13:05)
--- NOTE | 2023-02-13 15:14 | P.CONS ---
History of Present Illness - Reason for Consult Consult date: 02/13/23 Hepatic encephalopathy Requesting physician: Samir Aguayo - Chief Complaint Altered mental status changes - History of Present Illness This is a pleasant 62-year-old male with a past medical history including alcoholic liver disease, liver cancer diagnosed in October 2023 currently on second dose of chemo this past , patient goes every 3 weeks, recent diag nosis of diabetes mellitus who presented to the emergency department with altered mental status changes. He follows with weigher production and oncologist from [facility]. Patient was recently hospitalized at [facility] from January 27 through February 02 for elevated blood glucose, hyponatremia hyperkalemia and diarrhea. He underwent colonoscopy during that hospital stay and white states that he was told he had colitis he was started on mesalamine and prednisone in the hospital, he was sent home with a prednisone taper dose. He continues to have frequent diarrhea. Denies any nausea or vomiting. Apparently patient had become confused over the last day or so, more fatigued and weak. Patient's states that this is the first time that he's had mental status changes like this. He has had diarrhea for the last 2-3 months. Denies any blood in the stool. On admission he was noted to have elevated ammonia of 45. He was started on lactulose 30 g 3 times a day. He states he had 3 bowel movements from yesterday to today, weight states he has had additional for bowel movement. Repeat ammonia level today at 64. Patient is alert and oriented 3 currently. He is jaundiced. He denies any abdominal pain, nausea, vomiting, no chest pain or shortness of breath. He has bilateral lower extremity edema. Labs WBC 10.3 hemoglobin 12.9 hematocrit 39 platelet count 80,000 INR 1.6 sodium 140 potassium 4.7 BUN 24 creatinine 0.9 total bilirubin 9.5 AST 108 ALT 96 alkaline phosphatase 160 ammonia 64 Review of Systems REVIEW OF SYSTEMS: CARDIOPULMONARY: No chest pain or shortness of breath. Gastrointestinal: Denies abdominal pain. No nausea or vomiting. No hematemesis, coffee-ground emesis. Chronic diarrhea. No rectal bleeding, or melena. GENITOURINARY: No dysuria or hematuria. MUSCULOSKELETAL: Reports normal range of motion. Wrist pain. SKIN: No rashes. Jaundice. ENDOCRINE: No chills, fevers. No excessive weight gain or loss. No polydipsia or polyuria. PSYCHIATRIC: Unremarkable. NEUROLOGY: Altered mental status changes and weakness. Denies dizziness, headache. ENT: Vision unremarkable. CONSTITUTIONAL: Recent weight loss due to frequent diarrhea. No fever, chills, night sweats. Past Medical History Past Medical History: Cancer, Hypertension, Skin Disorder Additional Past Medical History / Comment(s): colon polyps, liver cancer History of Any Multi-Drug Resistant Organisms: None Reported Past Surgical History: Orthopedic Surgery Additional Past Surgical History / Comment(s): left wrist, colonoscopy, paracentesis Past Anesthesia/Blood Transfusion Reactions: No Reported Reaction Past Psychological History: No Psychological Hx Reported Smoking Status: Never smoker Past Alcohol Use History: None Reported Past Drug Use History: None Reported - Past Family History Mother Family Medical History: Cancer Additional Family Medical History / Comment(s): throat Father Family Medical History: Coronary Artery Disease (CAD) Medications and Allergies Home Medications Medication Instructions Recorded Confirmed Type Multivitamins, Thera [Multivitamin 1 tab PO DAILY 12/09/22 02/12/23 History (formulary)] Insulin Aspart See Protocol SQ AC-TID 02/12/23 02/12/23 History Insulin Glargine,Hum.rec.anlog 26 units SQ HS 02/12/23 02/12/23 History [Lantus Solostar Pen] Mesalamine [Delzicol] 800 mg PO TID 02/12/23 02/12/23 History Omeprazole [PriLOSEC] 40 mg PO DAILY 02/12/23 02/12/23 History metroNIDAZOLE [metroNIDAZOLE 0.75%] 1 applic TOPICAL DAILY PRN 02/12/23 02/12/23 History predniSONE See Taper PO DIRECTED 02/12/23 02/12/23 History Allergies Allergy/AdvReac Type Severity Reaction Status Date / Time Penicillins Allergy Rash/Hives Verified 02/12/23 11:44 Physical Exam Vitals: Vital Signs Temp Pulse Pulse Resp BP BP Pulse Ox 02/13/23 09:02 96 02/13/23 07:10 97.8 F 88 18 143/66 96 02/13/23 02:34 97.8 F 89 18 139/75 95 02/12/23 19:57 97.4 F L 90 20 137/74 96 02/12/23 15:34 98.2 F 79 16 147/67 97 02/12/23 14:53 97.8 F 63 19 140/71 93 L 02/12/23 12:11 67 19 130/71 99 02/12/23 09:48 97.7 F 77 19 143/76 96 Intake and Output 02/12/23 02/13/23 02/13/23 22:59 06:59 14:59 Intake Total 120 200 Output Total 100 Balance 20 200 Intake: Oral 120 200 Output: Urine 100 Other: Voiding Method Toilet # Voids 2 General appearance: The patient is alert, oriented, appears in no acute distress. HET: Head is normocephalic and atraumatic. Conjunctiva pink. Sclera icteric. Neck: Supple without lymphadenopathy. Trachea midline. Heart: S1 S2. Regular rate and rhythm. Lungs: Clear to auscultation. Abdomen: Soft, nontender, nondistended with bowel sounds. No guarding or rigidity. Skin: No rashes. Jaundice. Extremities: Normal skin color and turgor. Bilateral lower extremity pitting edema Neurological: No focal deficits. Alert and oriented x3. Results CBC & Chem 7: 02/12/23 10:07 02/13/23 04:22 Labs: Abnormal Lab Results - Last 24 Hours (Table) 02/12/23 02/12/23 02/12/23 Range/Units 10:02 10:07 10:07 RBC 3.42 L (4.30-5.90) m/uL Hgb 12.9 L (13.0-17.5) gm/dL MCV 115.5 H (80.0-100.0) fL MCH 37.7 H (25.0-35.0) pg Plt Count 80 L (150-450) k/uL Neutrophils # 9.0 H (1.3-7.7) k/uL Lymphocytes # 0.6 L (1.0-4.8) k/uL Macrocytosis Marked A PT 16.0 H (9.0-12.0) sec INR 1.6 H (<1.2) Sodium (137-145) mmol/L BUN (9-20) mg/dL Glucose (74-99) mg/dL POC Glucose (mg/dL) 340 H (70-110) mg/dL Total Bilirubin (0.2-1.3) mg/dL AST (17-59) U/L ALT (4-49) U/L Alkaline Phosphatase (38-126) U/L Ammonia (<30) umol/L Albumin (3.5-5.0) g/dL Urine Glucose (UA) (Negative) Urine Bilirubin (Negative) 02/12/23 02/12/23 02/12/23 Range/Units 10:07 10:07 10:07 RBC (4.30-5.90) m/uL Hgb (13.0-17.5) gm/dL MCV (80.0-100.0) fL MCH (25.0-35.0) pg Plt Count (150-450) k/uL Neutrophils # (1.3-7.7) k/uL Lymphocytes # (1.0-4.8) k/uL Macrocytosis PT (9.0-12.0) sec INR (<1.2) Sodium 135 L (137-145) mmol/L BUN 30 H (9-20) mg/dL Glucose 357 H (74-99) mg/dL POC Glucose (mg/dL) (70-110) mg/dL Total Bilirubin 10.7 H (0.2-1.3) mg/dL AST 85 H (17-59) U/L ALT 109 H (4-49) U/L Alkaline Phosphatase 200 H (38-126) U/L Ammonia 45 H (<30) umol/L Albumin 3.3 L (3.5-5.0) g/dL Urine Glucose (UA) 3+ H (Negative) Urine Bilirubin 1+ H (Negative) 02/12/23 02/12/23 02/13/23 Range/Units 17:26 20:27 04:22 RBC (4.30-5.90) m/uL Hgb (13.0-17.5) gm/dL MCV (80.0-100.0) fL MCH (25.0-35.0) pg Plt Count (150-450) k/uL Neutrophils # (1.3-7.7) k/uL Lymphocytes # (1.0-4.8) k/uL Macrocytosis PT (9.0-12.0) sec INR (<1.2) Sodium (137-145) mmol/L BUN (9-20) mg/dL Glucose (74-99) mg/dL POC Glucose (mg/dL) 251 H 175 H (70-110) mg/dL Total Bilirubin (0.2-1.3) mg/dL AST (17-59) U/L ALT (4-49) U/L Alkaline Phosphatase (38-126) U/L Ammonia 64 H (<30) umol/L Albumin (3.5-5.0) g/dL Urine Glucose (UA) (Negative) Urine Bilirubin (Negative) 02/13/23 Range/Units 07:31 RBC (4.30-5.90) m/uL Hgb (13.0-17.5) gm/dL MCV (80.0-100.0) fL MCH (25.0-35.0) pg Plt Count (150-450) k/uL Neutrophils # (1.3-7.7) k/uL Lymphocytes # (1.0-4.8) k/uL Macrocytosis PT (9.0-12.0) sec INR (<1.2) Sodium (137-145) mmol/L BUN (9-20) mg/dL Glucose (74-99) mg/dL POC Glucose (mg/dL) 133 H (70-110) mg/dL Total Bilirubin (0.2-1.3) mg/dL AST (17-59) U/L ALT (4-49) U/L Alkaline Phosphatase (38-126) U/L Ammonia (<30) umol/L Albumin (3.5-5.0) g/dL Urine Glucose (UA) (Negative) Urine Bilirubin (Negative) Assessment and Plan (1) Hepatic encephalopathy Narrative/Plan: This is 62-year-old male who presented with altered mental status changes labs consistent with elevated ammonia level secondary to underlying liver disease. Patient had a long-standing history of alcohol abuse with underlying liver disease with recent diagnosis of liver cancer in October 2023. Patient is being followed by oncologist and weigher production from [facility]. Patient's states patient was on lactulose 15 g twice a day, however they stopped it due to chronic diarrhea that he's been having for the last couple months duration. Patient was recently started on chemo for liver cancer, had his second dose on . During his hospitalization at [facility] he did undergo colonoscopy which patient's states that he was told he had colitis and was started on mesalamine as well as prednisone taper dose. Patient continues to have several episodes of diarrhea daily. Denies any blood in the stool. Will add Xifaxan 4 hepatic encephalopathy, continue lactulose for now. Will run stools samples and if negative for C. diff. Lactulose and continue Xifaxan. Patient to follow-up with his weigher production/oncologist. Current Visit: Yes Status: Acute Code(s): K76.82 - HEPATIC ENCEPHALOPATHY SNOMED Code(s): 43116213 (2) HCC (hepatocellular carcinoma) Current Visit: Yes Status: Acute Priority: High Code(s): C22.0 - LIVER CELL CARCINOMA SNOMED Code(s): 101107921 (3) History of alcohol abuse Current Visit: Yes Status: Acute Code(s): F10.11 - ALCOHOL ABUSE, IN REMISSION SNOMED Code(s): 540657888 (4) Hypercoagulable state Narrative/Plan: Due to underlying hepatocellular disease Current Visit: Yes Status: Acute Code(s): D68.59 - OTHER PRIMARY THROMBOPHILIA SNOMED Code(s): 62444786 Plan: 1. Continue symptomatic and supportive care 2. Continue lactulose 30 g 3 times a day, titrate 3-4 bowel movements daily 3. Add Xifaxan 550 mg twice a day 4. Stool sample for C. diff 5. Daily CBC, CMP, ammonia level, INR 6. Ultrasound of liver ordered per primary team, will also evaluate for ascites 7. Continue with recommendations from oncology Thank you for this consultation, we will continue to follow. Dr. Shalini Nichole I agree with the dictator's note, documented as a scribe by Macrina Rojo.
--- NOTE | 2023-02-13 15:16 | US ---
EXAMINATION TYPE: US gallbladder DATE OF EXAM: 02/13/2023 COMPARISON: US 2021 CLINICAL HISTORY: with liver. Pain TECHNIQUE: Multiple sonographic images of the right upper quadrant are obtained. FINDINGS: Exam done portable EXAM MEASUREMENTS: Liver Length: 12.5 cm Gallbladder Wall: 0.4 cm CBD: 0.5 cm Right Kidney: 12.0 x 4.9 x 4.5 cm Pancreas: obscured by overlying midline bowel gas Liver: heterogeneous, course echotexture, multiple masses with largest measuring 3.5 x 4.1 x 3.5cm Gallbladder: limited visualization, 0.6cm echogenic focus within neck, wall borderline thickened Evidence for sonographic Amaya's sign: no CBD: visualized portions wnl, limited by overlying bowel gas Right Kidney: wnl Abdominal ascites seen in all 4 quadrants Right pleural effusion seen IMPRESSION: 1. Small amount of ascites and small right pleural effusion. There is heterogeneous with multiple mas ses the largest measuring 4.1 cm. 2. Cholelithiasis.
[2023-02-13 17:23] LABS: Glucose,Whole Blood 321 mg/dL (70-110)
--- NOTE | 2023-02-13 17:41 | P.CONS ---
History of Present Illness - Reason for Consult Consult date: 02/13/23 HCC on treatment Requesting physician: Samir Aguayo - Chief Complaint AMS - History of Present Illness Mr. Urena is a 62 yo male we have been asked to see because he is currently undergoing treatment for HCC, diagnosed from liver biopsy 10/2022. He is s/p 2 cycles of avastin and tecentriq-01/09/23 was his 1st cycle. His AFP was 26 when he was diagnosed. He was recently hospitalized / for deranged electrolytes and hyperglycemia-new diagnosis of DM. He had colonoscopy for diarrhea and is now on a taper of prednisone and mesalamine-he denies diarrhea today. Pt is not able to tell us much about his PMH, rest is taken from chart review. Patient has PMH ETOH abuse, quitting almost 1 year ago, who was brought to ER with AMS-pt confused, was incontinent per . His ammonia level was 45, today it is 64, he is not on lactulose. Bilirubin was 10.7, today 9.5, LFTs are elevated. CT without contrast was neg for metastatic disease. CBG was 357. CXR showed small [address]iam pl eff. Review of Systems 10 point ROS is as stated in HPI-pt unable to relay of his PMH due to hepatic encephalopathy Past Medical History Past Medical History: Cancer, Hypertension, Skin Disorder Additional Past Medical History / Comment(s): colon polyps, liver cancer History of Any Multi-Drug Resistant Organisms: None Reported Past Surgical History: Orthopedic Surgery Additional Past Surgical History / Comment(s): left wrist, colonoscopy, paracentesis Past Anesthesia/Blood Transfusion Reactions: No Reported Reaction Past Psychological History: No Psychological Hx Reported Smoking Status: Never smoker Past Alcohol Use History: None Reported Past Drug Use History: None Reported - Past Family History Mother Family Medical History: Cancer Additional Family Medical History / Comment(s): throat Father Family Medical History: Coronary Artery Disease (CAD) Medications and Allergies Home Medications Medication Instructions Recorded Confirmed Type Multivitamins, Thera [Multivitamin 1 tab PO DAILY 12/09/22 02/12/23 History (formulary)] Insulin Aspart See Protocol SQ AC-TID 02/12/23 02/12/23 History Insulin Glargine,Hum.rec.anlog 26 units SQ HS 02/12/23 02/12/23 History [Lantus Solostar Pen] Mesalamine [Delzicol] 800 mg PO TID 02/12/23 02/12/23 History Omeprazole [PriLOSEC] 40 mg PO DAILY 02/12/23 02/12/23 History metroNIDAZOLE [metroNIDAZOLE 0.75%] 1 applic TOPICAL DAILY PRN 02/12/23 02/12/23 History predniSONE See Taper PO DIRECTED 02/12/23 02/12/23 History Allergies Allergy/AdvReac Type Severity Reaction Status Date / Time Penicillins Allergy Rash/Hives Verified 02/12/23 11:44 Physical Exam Vitals: Vital Signs Temp Pulse Pulse Resp BP BP Pulse Ox 02/13/23 11:51 97.5 F L 94 18 129/74 95 02/13/23 09:02 96 02/13/23 07:10 97.8 F 88 18 143/66 96 02/13/23 02:34 97.8 F 89 18 139/75 95 02/12/23 19:57 97.4 F L 90 20 137/74 96 02/12/23 15:34 98.2 F 79 16 147/67 97 02/12/23 14:53 97.8 F 63 19 140/71 93 L Intake and Output 02/12/23 02/13/23 02/13/23 22:59 06:59 14:59 Intake Total 120 200 Output Total 100 Balance 20 200 Intake: Oral 120 200 Output: Urine 100 Other: Voiding Method Toilet # Voids 2 # Bowel Movements 1 - Constitutional General appearance: average body habitus, cooperative, no acute distress - EENT Eyes: EOMI, scleral icterus ENT: hearing grossly normal - Neck Neck: no lymphadenopathy - Respiratory Respiratory: bilateral: CTA - Cardiovascular Rhythm: regular Heart sounds: normal: S1, S2 Abnormal Heart Sounds: no systolic murmur, no diastolic murmur, no rub, no S3 Gallop, no S4 Gallop, no click, no other leg Peripheral Edema: bilateral: 1+, Pitting - Gastrointestinal General gastrointestinal: no absent bowel sounds, no decreased bowel sounds, distended, hepatomegaly, no hyperactive bowel sounds, normal bowel sounds, no organomegaly, no rigid, no scaphoid, soft, splenomegaly, no tenderness, no umbilical hernia, no ventral hernia - Integumentary Integumentary: jaundiced - Neurologic Neurologic: CNII-XII intact - Musculoskeletal Musculoskeletal: generalized weakness - Psychiatric Alert, oriented to self, place and time, he does have trouble with his cancer Hx and details of treatment Results CBC & Chem 7: 02/12/23 10:07 02/13/23 04:22 Labs: Abnormal Lab Results - Last 24 Hours (Table) 02/12/23 02/12/23 02/12/23 Range/Units 10:07 17:26 20:27 Carbon Dioxide (20.0-27.5) mmol/L BUN/Creatinine Ratio (12.00-20.00) Ratio Glucose (70-110) mg/dL POC Glucose (mg/dL) 251 H 175 H (70-110) mg/dL Calcium (8.7-10.3) mg/dL Total Bilirubin (0.30-1.20) mg/dL AST (14-35) U/L ALT (10-49) U/L Alkaline Phosphatase (41-126) U/L Ammonia (<30) umol/L Total Protein (6.2-8.2) g/dL Albumin (3.8-4.9) g/dL Albumin/Globulin Ratio (1.60-3.17) g/dL Vitamin B12 (200.0-944.0) pg/mL Urine Glucose (UA) 3+ H (Negative) Urine Bilirubin 1+ H (Negative) 02/13/23 02/13/23 02/13/23 Range/Units 04:22 04:22 07:31 Carbon Dioxide 19.5 L (20.0-27.5) mmol/L BUN/Creatinine Ratio 27.00 H (12.00-20.00) Ratio Glucose 190 H (70-110) mg/dL POC Glucose (mg/dL) 133 H (70-110) mg/dL Calcium 8.6 L (8.7-10.3) mg/dL Total Bilirubin 9.50 H (0.30-1.20) mg/dL AST 108 H (14-35) U/L ALT 96 H (10-49) U/L Alkaline Phosphatase 160 H (41-126) U/L Ammonia 64 H (<30) umol/L Total Protein 5.9 L (6.2-8.2) g/dL Albumin 2.8 L (3.8-4.9) g/dL Albumin/Globulin Ratio 0.90 L (1.60-3.17) g/dL Vitamin B12 >1800.0 H (200.0-944.0) pg/mL Urine Glucose (UA) (Negative) Urine Bilirubin (Negative) 02/13/23 Range/Units 11:02 Carbon Dioxide (20.0-27.5) mmol/L BUN/Creatinine Ratio (12.00-20.00) Ratio Glucose (70-110) mg/dL POC Glucose (mg/dL) 229 H (70-110) mg/dL Calcium (8.7-10.3) mg/dL Total Bilirubin (0.30-1.20) mg/dL AST (14-35) U/L ALT (10-49) U/L Alkaline Phosphatase (41-126) U/L Ammonia (<30) umol/L Total Protein (6.2-8.2) g/dL Albumin (3.8-4.9) g/dL Albumin/Globulin Ratio (1.60-3.17) g/dL Vitamin B12 (200.0-944.0) pg/mL Urine Glucose (UA) (Negative) Urine Bilirubin (Negative) Chest x-ray: report reviewed CT Scan - head: report reviewed Assessment and Plan (1) HCC (hepatocellular carcinoma) Current Visit: Yes Status: Acute Priority: High Code(s): C22.0 - LIVER SARA L CARCINOMA SNOMED Code(s): 583639172 Plan: HCC -Discussed case with his attending Med Onc Dr. Albert at [facility]. Pt was diagnosed from liver biopsy 11/17. His AFP was 26 at that time. He was started on atezolizumab and bevacizumab 01/09/23, he has had 2 cycles, due for cycle # 3 soon. -Bilirubin slightly higher compared to when diagnosed (around 9, it was 10.7 on admit, down to 9.5 today) -AFP 26 at diagnosis. Ordered today to compare -Pt has just started treatment. When being treated with IO agents there can be pseudo-progression seen early on in treatment. His lab values are suggestive of progressive hepatic failure which can also be seen early in treatment with heavy disease burden in the liver. Pt is receiving supportive care. Will see how hospital course progresses. -GI has seen pt and treating hepatic encephalopathy. Agree with their plan. 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 Attests: I have seen and examined pt, performed H&P, developed impression and plan of care. Discussed with dictator. Agree with documentation, dictated as a scribe.
[2023-02-13 19:49] LABS: Basophils # (A) 0.03 X 10*3/uL (0.00-0.10); Basophils % (A) 0.3 %; Eosinophils # (A) 0.28 X 10*3/uL (0.04-0.35); Eosinophils % (A) 2.9 %; HCT 35.1 % (39.6-50.0); HGB 11.7 g/dL (13.0-17.0); Lymphocytes # (A) 0.84 X 10*3/uL (0.90-5.00); Lymphocytes % (A) 8.8 %; MCH 36.9 pg (27.0-32.0); MCHC 33.3 g/dL (32.0-37.0); MCV 110.7 fL (80.0-97.0); Mean Platelet Volume 11.2 fL (9.5-12.2); Monocytes # (A) 0.83 X 10*3/uL (0.20-1.00); Monocytes % (A) 8.7 %; NRBC Per 100 WBC 0 /100 WBCS (0.0-0.0); Neutrophils % (A) 78.3 %; Platelet Count 98 X 10*3/uL (140-440); RBC 3.17 X 10*6/uL (4.40-5.60); RDW 16.2 % (11.5-14.5); WBC 9.58 X 10*3/uL (4.50-10.00)
[2023-02-13 19:50] LABS: Macrocytosis (M) 3+
[2023-02-13 20:52] LABS: Glucose,Whole Blood 334 mg/dL (70-110)
[2023-02-13] MEDS: RIFAXIMIN 550 MG TABLET PO SCH (21:06)
[2023-02-14 06:19] LABS: HCT 31.2 % (39.0-53.0); HGB 10.5 gm/dL (13.0-17.5); MCH 38.2 pg (25.0-35.0); MCHC 33.5 g/dL (31.0-37.0); Macrocytosis Marked; Mean Platelet Volume 8.2; RBC 2.74 m/uL (4.30-5.90); WBC 5.7 k/uL (3.8-10.6)
[2023-02-14 06:40] LABS: INR 1.5 (<1.2); Partial Thromboplastin Time 33.3 sec (22.0-30.0); Prothrombin Time 15.2 sec (9.0-12.0)
[2023-02-14 06:56] LABS: ALT 86 U/L (4-49); AST 81 U/L (17-59); African American GFR (CKD) >90 (>60 ml/min/1.73 sqM); Albumin 2.3 g/dL (3.5-5.0); Albumin/Globulin Ratio 0.7; Alkaline Phosphatase 154 U/L (38-126); Anion Gap 5 mmol/L; Blood Urea Nitrogen 24 mg/dL (9-20); Calcium 7.7 mg/dL (8.4-10.2); Carbon Dioxide 28 mmol/L (22-30); Chloride 106 mmol/L (98-107); Globulin 3.4 g/dL; Glucose 201 mg/dL (74-99); Non-African American GFR(CKD) >90 (>60 ml/min/1.73 sqM); Potassium 3.6 mmol/L (3.5-5.1); Sodium 139 mmol/L (137-145); Total Bilirubin 13.1 mg/dL (0.2-1.3); Total Protein 5.7 g/dL (6.3-8.2)
[2023-02-14 07:17] LABS: Platelet Count 82 k/uL (150-450)
[2023-02-14 07:19] LABS: Glucose,Whole Blood 203 mg/dL (70-110)
[2023-02-14] MEDS: PANTOPRAZOLE 40 MG TABLET PO SCH (07:55)
[2023-02-14] MEDS: BALSALAZIDE DISODIUM 750 MG CAPSULE PO SCH ×3 (07:55→20:29)
[2023-02-14] MEDS: LACTULOSE 20 GM/30 ML CUP PO SCH (07:55)
[2023-02-14] MEDS: RIFAXIMIN 550 MG TABLET PO SCH ×2 (07:56→20:29)
[2023-02-14] MEDS: INSULIN ASPART (NovoLOG) 100 UNIT/ML VIAL SQ SCH ×4 (07:59→20:28)
[2023-02-14] MEDS: ENOXAPARIN 40 MG/0.4 ML SYRINGE SQ SCH (09:32)
[2023-02-14 11:25] LABS: Glucose,Whole Blood 232 mg/dL (70-110)
--- NOTE | 2023-02-14 13:16 | P.PN ---
Subjective Progress Note Date: 02/14/23 Hospital Course: Patient is a 62-year-old male with PMH of liver cancer following Dr. Burgess out of [place] presents the ED for worsening confusion. In the ED, his vital signs were stable. At the time of my interview he was sleeping. CBC showed hemoglobin of 12.9 and MCV of 115.5 with platelet count of 80. INR was 1.6. CMP showed sodium of 135, BUN of 30, glucose of 357, total bilirubin of 10.7, AST of 85, ALT of 109, alkaline phosphatase of 200. Troponin was less than 0.012, EKG showed sinus rhythm with ventricular rate of 83. UDS and acetone was negative. Ammonia level was 45. Chest x-ray showed small to moderate bilateral pleural effusion. CT brain showed moderate cerebral atrophy with chronic small vessel disease with no acute intracranial findings. Patient is admitted for hepatic encephalopathy. Repeat ammonia level was elevated at 64. TSH, B12 and folate acid was within normal limits. GI is following Subjective: Patient seen and examined at bedside. No acute events overnight. He denies any chest pain, shortness breath, abdominal pain, nausea, vomiting, diarrhea, constipation, or urinary complaints. Pertinent positives and negatives as discussed above, a complete review of systems was performed and all other systems are negative. Vitals Signs Reviewed. General: nontoxic, no distress, appears at stated age Derm: warm, dry, jaundice Head: atraumatic, normocephalic, symmetric Eyes: EOMI, no lid lag, scleral icterus Mouth: no lip lesion, mucus membranes moist Cardiovascular: S1S2 reg, no murmur Lungs: CTA bilateral, no rhonchi, no rales , no accessory muscle use Abdominal: soft, distended, nontender to palpation, no guarding, no appreciable organomegaly Ext: no gross muscle atrophy, no edema, no contractures Neuro: CN II-XI grossly intact, no focal neuro deficits Psych: Alert, oriented, appropriate affect Data Reviewed Today: Pertinent Labs: Hemoglobin 10.5, platelet count 82, INR 1.5, sodium 139, potassium 3.6, creatinine 0.73, blood glucose ranged from 203-334 Imaging: Abdominal ultrasound report reviewed, shows small amounts of ascites and small right pleural effusion, heterogenous with multiple masses, largest being 4.1 cm, cholelithiasis Assessment and Plan: Active: Acute Hepatic encephalopathy Hepatocellular carcinoma on chemotherapy Hyperbilirubinemia, transaminitis Macrocytic anemia Thrombocytopenia Elevated INR Diabetes mellitus with hyperglycemia -On rifaximin by 50 mg twice a day, lactulose 30 g 3 times a day -Had 3 bowel movements today -Encephalopathy improving, mental status back to baseline -Hyperbilirubinemia worsening -Hemoglobin down trending, thrombocytopenia worsening -All likely secondary to splenic sequestration -INR 1.5, he is status post vitamin K, no active bleeding -Started on Levemir 10 units, continue low sliding scale insulin -GI and oncology following DVT ppx: Lovenox Code status: Full code Anticipated discharge place: Pending clinical course Anticipated discharge time: Pending clinical course Objective - Vital Signs Vital signs: Vital Signs Temp 97.4 F L 02/14/23 11:54 Pulse 87 02/14/23 11:54 Resp 18 02/14/23 11:54 BP 121/74 02/14/23 11:54 Pulse Ox 97 02/14/23 11:54 FiO2 Intake & Output 02/13/23 02/14/23 02/14/23 18:59 06:59 18:59 Intake Total 800 120 Balance 800 120 Intake: Intake, IV Titration 200 Amount Phytonadione 5 mg In 50 Sodium Chloride 0.9% 50 ml @ 100 mls/hr IVPB ONCE STA Rx#:[id number] Sodium Chloride 0.9% 1, 150 000 ml @ 75 mls/hr IV . [id number] ONE Rx#:[id number] Oral 600 120 Other: Voiding Method Toilet # Voids 5 3 # Bowel Movements 2 3 - Labs CBC & Chem 7: 02/14/23 05:46 02/14/23 05:46 Labs: Abnormal Lab Results - Last 24 Hours (Table) 02/13/23 02/13/23 02/13/23 Range/Units 04:22 12:14 17:21 RBC 3.17 L (4.40-5.60) X 10*6/uL Hgb 11.7 L (13.0-17.0) g/dL Hct 35.1 L (39.6-50.0) % MCV 110.7 H (80.0-97.0) fL MCH 36.9 H (27.0-32.0) pg RDW 16.2 H (11.5-14.5) % Plt Count 98 L (140-440) X 10*3/uL Plt Count Comment DECREASED A Immature Gran # 0.10 H (0.00-0.04) X 10*3/uL Lymphocytes # 0.84 L (0.90-5.00) X 10*3/uL Macrocytosis PT (9.0-12.0) sec INR (<1.2) APTT (22.0-30.0) sec BUN (9-20) mg/dL Glucose (74-99) mg/dL POC Glucose (mg/dL) 321 H (70-110) mg/dL Calcium (8.4-10.2) mg/dL Total Bilirubin (0.2-1.3) mg/dL AST (17-59) U/L ALT (4-49) U/L Alkaline Phosphatase (38-126) U/L Ammonia (<30) umol/L Total Protein (6.3-8.2) g/dL Albumin (3.5-5.0) g/dL Tumor Marker AFP 136.00 H (0.00-7.90) ng/mL 02/13/23 02/14/23 02/14/23 Range/Units 20:34 05:46 05:46 RBC (4.40-5.60) X 10*6/uL Hgb (13.0-17.0) g/dL Hct (39.6-50.0) % MCV (80.0-97.0) fL MCH (27.0-32.0) pg RDW (11.5-14.5) % Plt Count (140-440) X 10*3/uL Plt Count Comment Immature Gran # (0.00-0.04) X 10*3/uL Lymphocytes # (0.90-5.00) X 10*3/uL Macrocytosis PT (9.0-12.0) sec INR (<1.2) APTT (22.0-30.0) sec BUN 24 H (9-20) mg/dL Glucose 201 H (74-99) mg/dL POC Glucose (mg/dL) 334 H (70-110) mg/dL Calcium 7.7 L (8.4-10.2) mg/dL Total Bilirubin 13.1 H (0.2-1.3) mg/dL AST 81 H (17-59) U/L ALT 86 H (4-49) U/L Alkaline Phosphatase 154 H (38-126) U/L Ammonia 32 H (<30) umol/L Total Protein 5.7 L (6.3-8.2) g/dL Albumin 2.3 L (3.5-5.0) g/dL Tumor Marker AFP (0.00-7.90) ng/mL 02/14/23 02/14/23 02/14/23 Range/Units 05:46 05:46 07:17 RBC 2.74 L (4.40-5.60) X 10*6/uL Hgb 10.5 L (13.0-17.0) g/dL Hct 31.2 L (39.6-50.0) % MCV 114.0 H (80.0-97.0) fL MCH 38.2 H (27.0-32.0) pg RDW (11.5-14.5) % Plt Count 82 L (140-440) X 10*3/uL Plt Count Comment Immature Gran # (0.00-0.04) X 10*3/uL Lymphocytes # (0.90-5.00) X 10*3/uL Macrocytosis Marked A PT 15.2 H (9.0-12.0) sec INR 1.5 H (<1.2) APTT 33.3 H (22.0-30.0) sec BUN (9-20) mg/dL Glucose (74-99) mg/dL POC Glucose (mg/dL) 203 H (70-110) mg/dL Calcium (8.4-10.2) mg/dL Total Bilirubin (0.2-1.3) mg/dL AST (17-59) U/L ALT (4-49) U/L Alkaline Phosphatase (38-126) U/L Ammonia (<30) umol/L Total Protein (6.3-8.2) g/dL Albumin (3.5-5.0) g/dL Tumor Marker AFP (0.00-7.90) ng/mL 02/14/23 Range/Units 11:22 RBC (4.40-5.60) X 10*6/uL Hgb (13.0-17.0) g/dL Hct (39.6-50.0) % MCV (80.0-97.0) fL MCH (27.0-32.0) pg RDW (11.5-14.5) % Plt Count (140-440) X 10*3/uL Plt Count Comment Immature Gran # (0.00-0.04) X 10*3/uL Lymphocytes # (0.90-5.00) X 10*3/uL Macrocytosis PT (9.0-12.0) sec INR (<1.2) APTT (22.0-30.0) sec BUN (9-20) mg/dL Glucose (74-99) mg/dL POC Glucose (mg/dL) 232 H (70-110) mg/dL Calcium (8.4-10.2) mg/dL Total Bilirubin (0.2-1.3) mg/dL AST (17-59) U/L ALT (4-49) U/L Alkaline Phosphatase (38-126) U/L Ammonia (<30) umol/L Total Protein (6.3-8.2) g/dL Albumin (3.5-5.0) g/dL Tumor Marker AFP (0.00-7.90) ng/mL
--- NOTE | 2023-02-14 15:15 | P.PN ---
Subjective Progress Note Date: 02/14/23 Principal diagnosis: Hepatic encephalopathy This is a pleasant 62-year-old male with a past medical history including alcoholic liver disease, liver cancer diagnosed in October 2023 currently on second dose of chemo this past , patient goes every 3 weeks, recent diagnosis of diabetes mellitus who presented to the emergency department with altered mental status changes. He follows with collar stitcher and oncologist from [facility]. Patient was recently hospitalized at [facility] from January 27 through February 02 for elevated blood glucose, hyponatremia hyperkalemia and diarrhea. He underwent colonoscopy during that hospital stay and white states that he was told he had colitis he was started on mesalamine and prednisone in the hospital, he was sent home with a prednisone taper dose. He continues to have frequent diarrhea. Denies any nausea or vomiting. Apparently patient had become confused over the last day or so, more fatigued and weak. Patient's states that this is the first time that he's had mental status changes like this. He has had diarrhea for the last 2-3 months. Denies any blood in the stool. On admission he was noted to have elevated ammonia of 45. He was started on lactulose 30 g 3 times a day. He states he had 3 bowel movements from yesterday to today, weight states he has had additional for bowel movement. Repeat ammonia level today at 64. Patient is alert and oriented 3 currently. He is jaundiced. He denies any abdominal pain, nausea, vomiting, no chest pain or shortness of breath. He has bilateral lower extremity edema. 02/14/2023: Patient seen and examined today as a follow-up. Patient continued to have diarrhea yesterday, nursing reported that he had small amount of bright red blood with one bowel movement. None since. Stool C. diff was negative. Liver ultrasound reported small amount of ascites and small right pleural effusion. Heterogeneous with multiple masses the largest measuring 4.1 cm. Cholelithiasis. Patient is awake and alert today. No acute changes through the night. Denies any abdominal pain, nausea or vomiting. Repeat labs today's labs WBC 5.7 hemoglobin 10.5 platelet count 82,019 or 1.5 BUN 24 creatinine 0.7 total bilirubin 13 AST 81 ALT 86 alkaline phosphatase 154 ammonia 32 AFP tumor marker 136 Objective - Vital Signs Vital signs: Vital Signs Temp 97.4 F L 02/14/23 07:49 Pulse 76 02/14/23 07:49 Resp 18 02/14/23 07:49 BP 124/65 02/14/23 07:49 Pulse Ox 96 02/14/23 07:49 FiO2 Intake & Output 02/13/23 02/14/23 02/14/23 18:59 06:59 18:59 Intake Total 800 120 Balance 800 120 Intake: Intake, IV Titration 200 Amount Phytonadione 5 mg In 50 Sodium Chloride 0.9% 50 ml @ 100 mls/hr IVPB ONCE STA Rx#:[id number] Sodium Chloride 0.9% 1, 150 000 ml @ 75 mls/hr IV . [id number] ONE Rx#:[id number] Oral 600 120 Other: Voiding Method Toilet # Voids 5 3 # Bowel Movements 2 3 - Exam General appearance: The patient is alert, oriented, appears in no acute distress. HET: Head is normocephalic and atraumatic. Conjunctiva pink. Sclera icteric. Neck: Supple without lymphadenopathy. Abdomen: Soft, nontender, nondistended with bowel sounds. No guarding or rigidity. Extremities: Normal skin color and turgor. No lower extremity edema. Skin: No rashes, jaundice. Neurological: No focal deficits. Alert and oriented. - Labs CBC & Chem 7: 02/14/23 05:46 02/14/23 05:46 Labs: Abnormal Lab Results - Last 24 Hours (Table) 02/13/23 02/13/23 02/13/23 Range/Units 04:22 11:02 12:14 RBC 3.17 L (4.40-5.60) X 10*6/uL Hgb 11.7 L (13.0-17.0) g/dL Hct 35.1 L (39.6-50.0) % MCV 110.7 H (80.0-97.0) fL MCH 36.9 H (27.0-32.0) pg RDW 16.2 H (11.5-14.5) % Plt Count 98 L (140-440) X 10*3/uL Plt Count Comment DECREASED A Immature Gran # 0.10 H (0.00-0.04) X 10*3/uL Lymphocytes # 0.84 L (0.90-5.00) X 10*3/uL Macrocytosis PT (9.0-12.0) sec INR (<1.2) APTT (22.0-30.0) sec BUN (9-20) mg/dL Glucose (74-99) mg/dL POC Glucose (mg/dL) 229 H (70-110) mg/dL Calcium (8.4-10.2) mg/dL Total Bilirubin (0.2-1.3) mg/dL AST (17-59) U/L ALT (4-49) U/L Alkaline Phosphatase (38-126) U/L Ammonia (<30) umol/L Total Protein (6.3-8.2) g/dL Albumin (3.5-5.0) g/dL Tumor Marker AFP 136.00 H (0.00-7.90) ng/mL 02/13/23 02/13/23 02/14/23 Range/Units 17:21 20:34 05:46 RBC (4.40-5.60) X 10*6/uL Hgb (13.0-17.0) g/dL Hct (39.6-50.0) % MCV (80.0-97.0) fL MCH (27.0-32.0) pg RDW (11.5-14.5) % Plt Count (140-440) X 10*3/uL Plt Count Comment Immature Gran # (0.00-0.04) X 10*3/uL Lymphocytes # (0.90-5.00) X 10*3/uL Macrocytosis PT (9.0-12.0) sec INR (<1.2) APTT (22.0-30.0) sec BUN (9-20) mg/dL Glucose (74-99) mg/dL POC Glucose (mg/dL) 321 H 334 H (70-110) mg/dL Calcium (8.4-10.2) mg/dL Total Bilirubin (0.2-1.3) mg/dL AST (17-59) U/L ALT (4-49) U/L Alkaline Phosphatase (38-126) U/L Ammonia 32 H (<30) umol/L Total Protein (6.3-8.2) g/dL Albumin (3.5-5.0) g/dL Tumor Marker AFP (0.00-7.90) ng/mL 02/14/23 02/14/23 02/14/23 Range/Units 05:46 05:46 05:46 RBC 2.74 L (4.40-5.60) X 10*6/uL Hgb 10.5 L (13.0-17.0) g/dL Hct 31.2 L (39.6-50.0) % MCV 114.0 H (80.0-97.0) fL MCH 38.2 H (27.0-32.0) pg RDW (11.5-14.5) % Plt Count 82 L (140-440) X 10*3/uL Plt Count Comment Immature Gran # (0.00-0.04) X 10*3/uL Lymphocytes # (0.90-5.00) X 10*3/uL Macrocytosis Marked A PT 15.2 H (9.0-12.0) sec INR 1.5 H (<1.2) APTT 33.3 H (22.0-30.0) sec BUN 24 H (9-20) mg/dL Glucose 201 H (74-99) mg/dL POC Glucose (mg/dL) (70-110) mg/dL Calcium 7.7 L (8.4-10.2) mg/dL Total Bilirubin 13.1 H (0.2-1.3) mg/dL AST 81 H (17-59) U/L ALT 86 H (4-49) U/L Alkaline Phosphatase 154 H (38-126) U/L Ammonia (<30) umol/L Total Protein 5.7 L (6.3-8.2) g/dL Albumin 2.3 L (3.5-5.0) g/dL Tumor Marker AFP (0.00-7.90) ng/mL 02/14/23 Range/Units 07:17 RBC (4.40-5.60) X 10*6/uL Hgb (13.0-17.0) g/dL Hct (39.6-50.0) % MCV (80.0-97.0) fL MCH (27.0-32.0) pg RDW (11.5-14.5) % Plt Count (140-440) X 10*3/uL Plt Count Comment Immature Gran # (0.00-0.04) X 10*3/uL Lymphocytes # (0.90-5.00) X 10*3/uL Macrocytosis PT (9.0-12.0) sec INR (<1.2) APTT (22.0-30.0) sec BUN (9-20) mg/dL Glucose (74-99) mg/dL POC Glucose (mg/dL) 203 H (70-110) mg/dL Calcium (8.4-10.2) mg/dL Total Bilirubin (0.2-1.3) mg/dL AST (17-59) U/L ALT (4-49) U/L Alkaline Phosphatase (38-126) U/L Ammonia (<30) umol/L Total Protein (6.3-8.2) g/dL Albumin (3.5-5.0) g/dL Tumor Marker AFP (0.00-7.90) ng/mL Assessment and Plan (1) Hepatic encephalopathy Narrative/Plan: This is 62-year-old male who presented with altered mental status changes labs consistent with elevated ammonia level secondary to underlying liver disease. Patient had a long-standing history of alcohol abuse with underlying liver disease with recent diagnosis of liver cancer in October 2023. Patient is being followed by oncologist and collar stitcher from [facility]. Patient's states patient was on lactulose 15 g twice a day, however they stopped it due to chronic diarrhea that he's been having for the last couple months duration. Patient was recently started on chemo for liver cancer, had his second dose on . During his hospitalization at [place] he did undergo colonoscopy which patient's states that he was told he had colitis and was started on mesalamine as well as prednisone taper dose. Patient continues to have several episodes of diarrhea daily. Denies any blood in the stool. Will add Xifaxan 4 hepatic encephalopathy, continue lactulose for now. Will run stools samples and if negative for C. diff. Lactulose and continue Xifaxan. Patient to follow-up with his collar stitcher/oncologist. Current Visit: Yes Status: Acute Code(s): K76.82 - HEPATIC ENCEPHALOPATHY SNOMED Code(s): 77478894 (2) HCC (hepatocellular carcinoma) Current Visit: Yes Status: Acute Priority: High Code(s): C22.0 - LIVER CELL CARCINOMA SNOMED Code(s): 867363366 (3) History of alcohol abuse Current Visit: Yes Status: Acute Code(s): F10.11 - ALCOHOL ABUSE, IN REMISSION SNOMED Code(s): 981542645 (4) Hypercoagulable state Narrative/Plan: Due to underlying hepatocellular disease Current Visit: Yes Status: Acute Code(s): D68.59 - OTHER PRIMARY THROMBOPHILIA SNOMED Code(s): 04744297 Plan: 1. Continue symptomatic and supportive care 2. Discontinue lactulose 3. Add Xifaxan 550 mg twice a day 4. Daily CBC, CMP, ammonia level, INR 5. Continue with recommendations from oncology 6. Low sodium diet Thank you for this consultation, patient is cleared from gastroenterology once otherwise medically cleared. Patient to follow-up with his liver specialist and oncologist through [facility]. Dr. Shalini Nichole I agree with the dictator's note, documented as a scribe by Macrina Rojo.
--- NOTE | 2023-02-14 15:25 | P.PN ---
Subjective Progress Note Date: 02/14/23 Principal diagnosis: confusion, hepatic encephalopathy upon visit today patient was working with PT. Patient reports feeling improved today. Patient is more alert today. A&O x2, disoriented to time. Also complains of diarrhea. He is receiving lactulose. No other reported complaints at this time Objective - Vital Signs Vital signs: Vital Signs Temp 97.4 F L 02/14/23 11:54 Pulse 87 02/14/23 11:54 Resp 18 02/14/23 11:54 BP 121/74 02/14/23 11:54 Pulse Ox 97 02/14/23 11:54 FiO2 Intake & Output 02/13/23 02/14/23 02/14/23 18:59 06:59 18:59 Intake Total 800 120 Balance 800 120 Intake: Intake, IV Titration 200 Amount Phytonadione 5 mg In 50 Sodium Chloride 0.9% 50 ml @ 100 mls/hr IVPB ONCE STA Rx#:[id number] Sodium Chloride 0.9% 1, 150 000 ml @ 75 mls/hr IV . [id number] ONE Rx#:[id number] Oral 600 120 Other: Voiding Method Toilet # Voids 5 3 # Bowel Movements 2 3 - Constitutional General appearance: Present: average body habitus, no acute distress - EENT Eyes: Present: EOMI ENT: Present: hearing grossly normal - Respiratory Details: breathing is even and unlabored - Cardiovascular Details: skin is warm and dry - Integumentary Integumentary: Present: jaundiced - Neurologic Neurologic Comment(s): grossly intact - Musculoskeletal Musculoskeletal: Present: generalized weakness - Psychiatric Psychiatric Comment(s): A&Ox 2, disorientated to time - Labs CBC & Chem 7: 02/14/23 05:46 02/14/23 05:46 Labs: Abnormal Lab Results - Last 24 Hours (Table) 02/13/23 02/13/23 02/13/23 Range/Units 04:22 12:14 17:21 RBC 3.17 L (4.40-5.60) X 10*6/uL Hgb 11.7 L (13.0-17.0) g/dL Hct 35.1 L (39.6-50.0) % MCV 110.7 H (80.0-97.0) fL MCH 36.9 H (27.0-32.0) pg RDW 16.2 H (11.5-14.5) % Plt Count 98 L (140-440) X 10*3/uL Plt Count Comment DECREASED A Immature Gran # 0.10 H (0.00-0.04) X 10*3/uL Lymphocytes # 0.84 L (0.90-5.00) X 10*3/uL Macrocytosis PT (9.0-12.0) sec INR (<1.2) APTT (22.0-30.0) sec BUN (9-20) mg/dL Glucose (74-99) mg/dL POC Glucose (mg/dL) 321 H (70-110) mg/dL Calcium (8.4-10.2) mg/dL Total Bilirubin (0.2-1.3) mg/dL AST (17-59) U/L ALT (4-49) U/L Alkaline Phosphatase (38-126) U/L Ammonia (<30) umol/L Total Protein (6.3-8.2) g/dL Albumin (3.5-5.0) g/dL Tumor Marker AFP 136.00 H (0.00-7.90) ng/mL 02/13/23 02/14/23 02/14/23 Range/Units 20:34 05:46 05:46 RBC (4.40-5.60) X 10*6/uL Hgb (13.0-17.0) g/dL Hct (39.6-50.0) % MCV (80.0-97.0) fL MCH (27.0-32.0) pg RDW (11.5-14.5) % Plt Count (140-440) X 10*3/uL Plt Count Comment Immature Gran # (0.00-0.04) X 10*3/uL Lymphocytes # (0.90-5.00) X 10*3/uL Macrocytosis PT (9.0-12.0) sec INR (<1.2) APTT (22.0-30.0) sec BUN 24 H (9-20) mg/dL Glucose 201 H (74-99) mg/dL POC Glucose (mg/dL) 334 H (70-110) mg/dL Calcium 7.7 L (8.4-10.2) mg/dL Total Bilirubin 13.1 H (0.2-1.3) mg/dL AST 81 H (17-59) U/L ALT 86 H (4-49) U/L Alkaline Phosphatase 154 H (38-126) U/L Ammonia 32 H (<30) umol/L Total Protein 5.7 L (6.3-8.2) g/dL Albumin 2.3 L (3.5-5.0) g/dL Tumor Marker AFP (0.00-7.90) ng/mL 02/14/23 02/14/23 02/14/23 Range/Units 05:46 05:46 07:17 RBC 2.74 L (4.40-5.60) X 10*6/uL Hgb 10.5 L (13.0-17.0) g/dL Hct 31.2 L (39.6-50.0) % MCV 114.0 H (80.0-97.0) fL MCH 38.2 H (27.0-32.0) pg RDW (11.5-14.5) % Plt Count 82 L (140-440) X 10*3/uL Plt Count Comment Immature Gran # (0.00-0.04) X 10*3/uL Lymphocytes # (0.90-5.00) X 10*3/uL Macrocytosis Marked A PT 15.2 H (9.0-12.0) sec INR 1.5 H (<1.2) APTT 33.3 H (22.0-30.0) sec BUN (9-20) mg/dL Glucose (74-99) mg/dL POC Glucose (mg/dL) 203 H (70-110) mg/dL Calcium (8.4-10.2) mg/dL Total Bilirubin (0.2-1.3) mg/dL AST (17-59) U/L ALT (4-49) U/L Alkaline Phosphatase (38-126) U/L Ammonia (<30) umol/L Total Protein (6.3-8.2) g/dL Albumin (3.5-5.0) g/dL Tumor Marker AFP (0.00-7.90) ng/mL 02/14/23 Range/Units 11:22 RBC (4.40-5.60) X 10*6/uL Hgb (13.0-17.0) g/dL Hct (39.6-50.0) % MCV (80.0-97.0) fL MCH (27.0-32.0) pg RDW (11.5-14.5) % Plt Count (140-440) X 10*3/uL Plt Count Comment Immature Gran # (0.00-0.04) X 10*3/uL Lymphocytes # (0.90-5.00) X 10*3/uL Macrocytosis PT (9.0-12.0) sec INR (<1.2) APTT (22.0-30.0) sec BUN (9-20) mg/dL Glucose (74-99) mg/dL POC Glucose (mg/dL) 232 H (70-110) mg/dL Calcium (8.4-10.2) mg/dL Total Bilirubin (0.2-1.3) mg/dL AST (17-59) U/L ALT (4-49) U/L Alkaline Phosphatase (38-126) U/L Ammonia (<30) umol/L Total Protein (6.3-8.2) g/dL Albumin (3.5-5.0) g/dL Tumor Marker AFP (0.00-7.90) ng/mL Assessment and Plan (1) HCC (hepatocellular carcinoma) Current Visit: Yes Status: Acute Priority: High Code(s): C22.0 - LIVER CELL CARCINOMA SNOMED Code(s): 876153375 (2) Hypercoagulable state Current Visit: Yes Status: Acute Code(s): D68.59 - OTHER PRIMARY THROMBOPHILIA SNOMED Code(s): 95437529 Plan: HCC -Discussed case with his attending Med Onc Dr. Albert at [facility]. Pt was diagnosed from liver biopsy 11/17. His AFP was 26 at that time. He was started on atezolizumab and bevacizumab 01/09/23, he has had 2 cycles, due for cycle # 3 soon. -Bilirubin higher compared to when diagnosed (around 9, it was 10.7 on admit, 13.1 today) -AFP 26 at diagnosis. Repeat AFP 136 -Pt has just started treatment. When being treated with IO agents there can be pseudo-progression seen early on in treatment. His lab values are suggestive of progressive hepatic failure which can also be seen early in treatment with heavy disease burden in the liver. Pt is receiving supportive care. Will see how hospital course progresses. -GI has seen pt and treating hepatic encephalopathy. Agree with their plan. Will see how pt does Coagulopathy 2/2 liver disease -Vit K for elevated INR -Repeat INR 1.5 today, will continue to monitor INR daily, and treat with Vitamin K for INR greater than 1.5 Thrombocytopenia 2/2 liver disease and splenic sequestration -Platelets 82,000 today -Hold anticoagulation for plt <50,000. Attests: I have seen and examined pt, performed H&P, developed impression and plan of care. Discussed with dictator. Agree with documentation, dictated as a scribe.
[2023-02-14 16:59] LABS: Glucose,Whole Blood 355 mg/dL (70-110)
[2023-02-14 20:26] LABS: Glucose,Whole Blood 319 mg/dL (70-110)
[2023-02-14] MEDS ORDERED: INSULIN DETEMIR (LEVEMIR) 100 UNIT/ML SYR SQ SCH (21:00)
[2023-02-15 07:08] LABS: Glucose,Whole Blood 126 mg/dL (70-110)
[2023-02-15] MEDS: INSULIN ASPART (NovoLOG) 100 UNIT/ML VIAL SQ SCH ×2 (07:36→12:53)
[2023-02-15 08:05] LABS: INR 1.5 (<1.2); Partial Thromboplastin Time 32.2 sec (22.0-30.0); Prothrombin Time 15.2 sec (9.0-12.0)
[2023-02-15 09:08] VITALS: BP 115/67; PULSE 90; RESP 20; TEMP 98
[2023-02-15] MEDS: RIFAXIMIN 550 MG TABLET PO SCH (10:27)
[2023-02-15] MEDS: PANTOPRAZOLE 40 MG TABLET PO SCH (10:27)
[2023-02-15] MEDS: BALSALAZIDE DISODIUM 750 MG CAPSULE PO SCH (10:27)
[2023-02-15] MEDS: ENOXAPARIN 40 MG/0.4 ML SYRINGE SQ SCH (10:28)
[2023-02-15 10:36] LABS: HCT 28.2 % (39.6-50.0); HGB 9.2 g/dL (13.0-17.0); MCH 36.5 pg (27.0-32.0); MCHC 32.6 g/dL (32.0-37.0); MCV 111.9 fL (80.0-97.0); Mean Platelet Volume 10.2 fL (9.5-12.2); NRBC Per 100 WBC 0 /100 WBCS (0.0-0.0); Platelet Count 83 X 10*3/uL (140-440); RBC 2.52 X 10*6/uL (4.40-5.60); RDW 16.2 % (11.5-14.5); WBC 6.98 X 10*3/uL (4.50-10.00)
[2023-02-15 11:27] LABS: Glucose,Whole Blood 210 mg/dL (70-110)
[2023-02-15 11:42] LABS: African American GFR (CKD) 107.2 (60.0-200.0); Albumin 2.5 g/dL (3.8-4.9); Anion Gap 5.6 mmol/L (10.00-18.00); BUN/Creat Ratio 28.78 Ratio (12.00-20.00); Blood Urea Nitrogen 25.9 mg/dL (9.0-27.0); Carbon Dioxide 27.4 mmol/L (20.0-27.5); Globulin 2.5 g/dL (1.6-3.3); Non-African American GFR(CKD) 92.5 (60.0-200.0); Potassium 3.8 mmol/L (3.5-5.5); Total Bilirubin 11.9 mg/dL (0.30-1.20)
[2023-02-15 12:52] LABS: Basophils # (A) 0.01 X 10*3/uL (0.00-0.10); Basophils % (A) 0.1 %; Eosinophils # (A) 0.31 X 10*3/uL (0.04-0.35); Eosinophils % (A) 4.4 %; Immature Grans, Automated 0.9 %; Lymphocytes # (A) 0.76 X 10*3/uL (0.90-5.00); Lymphocytes % (A) 10.9 %; Macrocytosis (M) 3+; Monocytes % (A) 8.6 %; Neutrophils # (A) 5.24 X 10*3/uL (1.80-7.70); Neutrophils % (A) 75.1 %
--- NOTE | 2023-02-15 12:52 | P.DS ---
Providers Date of admission: 02/12/23 13:16 Expected date of discharge: 02/15/23 Attending physician: Felicity Gusman DO Consults: 02/12/23 14:51 Consult Physician Routine Consulting Provider: Luis Eduardo Feltno Consult Reason/Comments: history of liver ca Do you want consulting provider notified?: Yes Consult Physician Routine Consulting Provider: Jyoti Nichole Consult Reason/Comments: transaminitis, hyperammonemia Do you want consulting provider notified?: Yes [facility] Course: Discharge Diagnosis: Acute Hepatic encephalopathy Hepatocellular carcinoma on chemotherapy Hyperbilirubinemia, transaminitis Macrocytic anemia Thrombocytopenia Elevated INR Diabetes mellitus with hyperglycemia Hospital Course: Patient is a 62-year-old male with PMH of liver cancer following Dr. Burgess out of [place] presents the ED for worsening confusion. In the ED, his vital signs were stable. At the time of my interview he was sleeping. CBC showed hemoglobin of 12.9 and MCV of 115.5 with platelet count of 80. INR was 1.6. CMP showed sodium of 135, BUN of 30, glucose of 357, total bilirubin of 10.7, AST of 85, ALT of 109, alkaline phosphatase of 200. Troponin was less than 0.012, EKG showed sinus rhythm with ventricular rate of 83. UDS and acetone was negative. Ammonia level was 45. Chest x-ray showed small to moderate bilateral pleural effusion. CT brain showed moderate cerebral atrophy with chronic small vessel disease with no acute intracranial findings. Patient is admitted for hepatic encephalopathy. Repeat ammonia level was elevated at 64. TSH, B12 and folate acid was within normal limits. GI and oncology was consulted. Patient was given lactulose and rifaximin with improvement in mental status. Patient w as also given vitamin K for elevated INR. No active bleeding at the moment. Patient to follow-up with oncology and GI at [place]. Patient seen and examined at bedside. Vital signs reviewed and stable. General: nontoxic, no distress, appears at stated age Derm: warm, dry, jaundice Head: atraumatic, normocephalic, symmetric Eyes: EOMI, no lid lag, scleral icterus Mouth: no lip lesion, mucus membranes moist Cardiovascular: S1S2 reg, no murmur Lungs: CTA bilateral, no rhonchi, no rales , no accessory muscle use Abdominal: soft, distended, nontender to palpation, no guarding, no appreciable organomegaly Ext: no gross muscle atrophy, no edema, no contractures Neuro: CN II-XI grossly intact, no focal neuro deficits Psych: Alert, oriented, appropriate affect A total of 36 minutes of time were spent preparing this complex discharge summary. Patient was discharged on 02/15/23 at 12:20. Patient Condition at Discharge: Stable Plan - Discharge Summary Discharge Rx Participant: No New Discharge Prescriptions: New Rifaximin [Xifaxan] 550 mg PO BID #60 tab Continue Multivitamins, Thera [Multivitamin (formulary)] 1 tab PO DAILY Insulin Aspart See Protocol SQ AC-TID Mesalamine [Delzicol] 800 mg PO TID Omeprazole [PriLOSEC] 40 mg PO DAILY Insulin Glargine,Hum.rec.anlog [Lantus Solostar Pen] 26 units SQ HS Discontinued predniSONE See Taper PO DIRECTED metroNIDAZOLE [metroNIDAZOLE 0.75%] 1 applic TOPICAL DAILY PRN PRN Reason: HAND Discharge Medication List Multivitamins, Thera [Multivitamin (formulary)] 1 tab PO DAILY 12/09/22 [History] Insulin Aspart See Protocol SQ AC-TID 02/12/23 [History] Insulin Glargine,Hum.rec.anlog [Lantus Solostar Pen] 26 units SQ HS 02/12/23 [History] Mesalamine [Delzicol] 800 mg PO TID 02/12/23 [History] Omeprazole [PriLOSEC] 40 mg PO DAILY 02/12/23 [History] Rifaximin [Xifaxan] 550 mg PO BID #60 tab 02/15/23 [Rx] Follow up Appointment(s)/Referral(s): Corby Loo DO [Primary Care Provider] - 1-2 days Patient Instructions/Handouts: Hepatic Encephalopathy (DC) Activity/Diet/Wound Care/Special Instructions: Please see your Liver and cancer specialist at [place] within 1-2 weeks. Discharge Disposition: HOME SELF-CARE
--- NOTE | 2023-02-15 13:49 | P.PN ---
Subjective Progress Note Date: 02/15/23 Principal diagnosis: Hepatic encephalopathy This is a pleasant 62-year-old male with a past medical history including alcoholic liver disease, liver cancer diagnosed in October 2023 currently on second dose of chemo this past , patient goes every 3 weeks, recent diagnosis of diabetes mellitus who presented to the emergency department with altered mental status changes. He follows with field operations farm manager and oncologist from [facility]. Patient was recently hospitalized at [facility] from January 27 through February 02 for elevated blood glucose, hyponatremia hyperkalemia and diarrhea. He underwent colonoscopy during that hospital stay and white states that he was told he had colitis he was started on mesalamine and prednisone in the hospital, he was sent home with a prednisone taper dose. He continues to have frequent diarrhea. Denies any nausea or vomiting. Apparently patient had become confused over the last day or so, more fatigued and weak. Patient's states that this is the first time that he's had mental status changes like this. He has had diarrhea for the last 2-3 months. Denies any blood in the stool. On admission he was noted to have elevated ammonia of 45. He was started on lactulose 30 g 3 times a day. He states he had 3 bowel movements from yesterday to today, weight states he has had additional for bowel movement. Repeat ammonia level today at 64. Patient is alert and oriented 3 currently. He is jaundiced. He denies any abdominal pain, nausea, vomiting, no chest pain or shortness of breath. He has bilateral lower extremity edema. 02/14/2023: Patient seen and examined today as a follow-up. Patient continued to have diarrhea yesterday, nursing reported that he had small amount of bright red blood with one bowel movement. None since. Stool C. diff was negative. Liver ultrasound reported small amount of ascites and small right pleural effusion. Heterogeneous with multiple masses the largest measuring 4.1 cm. Cholelithiasis. Patient is awake and alert today. No acute changes through the night. Denies any abdominal pain, nausea or vomiting. Repeat labs today's labs WBC 5.7 hemoglobin 10.5 platelet count 82,019 or 1.5 BUN 24 creatinine 0.7 total bilirubin 13 AST 81 ALT 86 alkaline phosphatase 154 ammonia 32 AFP tumor marker 136 02/15/2023: Patient seen and examined today as a follow-up. He continues to be more alert. Remains jaundice. Had 4-5 bowel movements yesterday which is an improvement once lactulose was stopped. Started on Xifaxan 550 mg twice a day. Plan is for discharge home today. No acute changes through the night. Objective - Vital Signs Vital signs: Vital Signs Temp 98 F 02/15/23 08:00 Pulse 90 02/15/23 08:00 Resp 20 02/15/23 08:00 BP 115/67 02/15/23 08:00 Pulse Ox 94 L 02/15/23 08:00 FiO2 Intake & Output 02/14/23 02/15/23 02/15/23 18:59 06:59 18:59 Intake Total 240 Balance 240 Intake: Oral 240 Other: Voiding Method Toilet # Voids 3 # Bowel Movements 1 - Exam General appearance: The patient is alert, oriented, appears in no acute distress. HET: Head is normocephalic and atraumatic. Conjunctiva pink. Sclera icteric. Neck: Supple without lymphadenopathy. Abdomen: Soft, nontender, nondistended with bowel sounds. No guarding or rigidity. Extremities: Normal skin color and turgor. No lower extremity edema. Skin: No rashes, jaundice. Neurological: No focal deficits. Alert and oriented. - Labs CBC & Chem 7: 02/15/23 07:02 02/15/23 07:02 Labs: Abnormal Lab Results - Last 24 Hours (Table) 02/14/23 02/14/23 02/15/23 Range/Units 16:55 20:24 07:02 RBC 2.52 L (4.40-5.60) X 10*6/uL Hgb 9.2 L (13.0-17.0) g/dL Hct 28.2 L (39.6-50.0) % MCV 111.9 H (80.0-97.0) fL MCH 36.5 H (27.0-32.0) pg RDW 16.2 H (11.5-14.5) % Plt Count 83 L (140-440) X 10*3/uL Plt Count Comment DECREASED A Immature Gran # 0.06 H (0.00-0.04) X 10*3/uL Lymphocytes # 0.76 L (0.90-5.00) X 10*3/uL PT (9.0-12.0) sec INR (<1.2) APTT (22.0-30.0) sec Anion Gap (10.00-18.00) mmol/L BUN/Creatinine Ratio (12.00-20.00) Ratio Glucose (70-110) mg/dL POC Glucose (mg/dL) 355 H 319 H (70-110) mg/dL Calcium (8.7-10.3) mg/dL Total Bilirubin (0.30-1.20) mg/dL AST (14-35) U/L ALT (10-49) U/L Alkaline Phosphatase (41-126) U/L Total Protein (6.2-8.2) g/dL Albumin (3.8-4.9) g/dL Albumin/Globulin Ratio (1.60-3.17) g/dL 02/15/23 02/15/23 02/15/23 Range/Units 07:02 07:02 07:06 RBC (4.40-5.60) X 10*6/uL Hgb (13.0-17.0) g/dL Hct (39.6-50.0) % MCV (80.0-97.0) fL MCH (27.0-32.0) pg RDW (11.5-14.5) % Plt Count (140-440) X 10*3/uL Plt Count Comment Immature Gran # (0.00-0.04) X 10*3/uL Lymphocytes # (0.90-5.00) X 10*3/uL PT 15.2 H (9.0-12.0) sec INR 1.5 H (<1.2) APTT 32.2 H (22.0-30.0) sec Anion Gap 5.60 L (10.00-18.00) mmol/L BUN/Creatinine Ratio 28.78 H (12.00-20.00) Ratio Glucose 120 H (70-110) mg/dL POC Glucose (mg/dL) 126 H (70-110) mg/dL Calcium 8.0 L (8.7-10.3) mg/dL Total Bilirubin 11.90 H (0.30-1.20) mg/dL AST 76 H (14-35) U/L ALT 80 H (10-49) U/L Alkaline Phosphatase 149 H (41-126) U/L Total Protein 5.0 L (6.2-8.2) g/dL Albumin 2.5 L (3.8-4.9) g/dL Albumin/Globulin Ratio 1.00 L (1.60-3.17) g/dL 02/15/23 Range/Units 11:26 RBC (4.40-5.60) X 10*6/uL Hgb (13.0-17.0) g/dL Hct (39.6-50.0) % MCV (80.0-97.0) fL MCH (27.0-32.0) pg RDW (11.5-14.5) % Plt Count (140-440) X 10*3/uL Plt Count Comment Immature Gran # (0.00-0.04) X 10*3/uL Lymphocytes # (0.90-5.00) X 10*3/uL PT (9.0-12.0) sec INR (<1.2) APTT (22.0-30.0) sec Anion Gap (10.00-18.00) mmol/L BUN/Creatinine Ratio (12.00-20.00) Ratio Glucose (70-110) mg/dL POC Glucose (mg/dL) 210 H (70-110) mg/dL Calcium (8.7-10.3) mg/dL Total Bilirubin (0.30-1.20) mg/dL AST (14-35) U/L ALT (10-49) U/L Alkaline Phosphatase (41-126) U/L Total Protein (6.2-8.2) g/dL Albumin (3.8-4.9) g/dL Albumin/Globulin Ratio (1.60-3.17) g/dL Assessment and Plan (1) Hepatic encephalopathy Narrative/Plan: This is 62-year-old male who presented with altered mental status changes labs consistent with elevated ammonia level secondary to underlying liver disease. Patient had a long-standing history of alcohol abuse with underlying liver disease with recent diagnosis of liver cancer in October 2023. Patient is being followed by oncologist and field operations farm manager from [facility]. Patient's states patient was on lactulose 15 g twice a day, however they stopped it due to chronic diarrhea that he's been having for the last couple months duration. Patient was recently started on chemo for liver cancer, had his second dose on . During his hospitalization at [place] he did undergo colonoscopy which patient's states that he was told he had colitis and was started on mesalamine as well as prednisone taper dose. Patient continues to have several episodes of diarrhea daily. Denies any blood in the stool. Will add Xifaxan 4 hepatic encephalopathy, continue lactulose for now. Will run stools samples and if negative for C. diff. Lactulose and continue Xifaxan. Patient to follow-up with his field operations farm manager/oncologist. Current Visit: Yes Status: Acute Priority: High Code(s): K76.82 - HEPATIC ENCEPHALOPATHY SNOMED Code(s): 52154727 (2) HCC (hepatocellular carcinoma) Current Visit: Yes Status: Acute Priority: High Code(s): C22.0 - LIVER CELL CARCINOMA SNOMED Code(s): 994375388 (3) History of alcohol abuse Current Visit: Yes Status: Acute Code(s): F10.11 - ALCOHOL ABUSE, IN REMISSION SNOMED Code(s): 384379052 (4) Hypercoagulable state Narrative/Plan: Due to underlying hepatocellular disease Current Visit: Yes Status: Acute Code(s): D68.59 - OTHER PRIMARY THROMBOPHILIA SNOMED Code(s): 82213298 Plan: 1. Continue symptomatic and supportive care 2. Discontinue lactulose 3. Continue Xifaxan 550 mg twice a day. Prescription sent. Instructed both patient and if side effects and not covered by insurance, continue with lactulose as previously prescribed 4. Continue with recommendations from oncology 5. Low sodium diet Thank you for this consultation, patient is cleared from gastroenterology For discharge. Patient to follow-up with his liver specialist and oncologist through [place]. Dr. Shalini Nichole I agree with the dictator's note, documented as a scribe by Macrina PACKER .
--- NOTE | 2023-02-15 14:55 | P.PN ---
Subjective Progress Note Date: 02/15/23 Principal diagnosis: confusion, hepatic encephalopathy At todays visit patient is sitting in bedside chair. Patient reports feeling improved today and he feels like his strength is coming back. Patient is more alert every day. A&Ox3. No other reported complaints at this time Objective - Vital Signs Vital signs: Vital Signs Temp 98 F 02/15/23 08:00 Pulse 90 02/15/23 08:00 Resp 20 02/15/23 08:00 BP 115/67 02/15/23 08:00 Pulse Ox 94 L 02/15/23 08:00 FiO2 Intake & Output 02/14/23 02/15/23 02/15/23 18:59 06:59 18:59 Intake Total 240 Balance 240 Intake: Oral 240 Other: Voiding Method Toilet # Voids 3 # Bowel Movements 1 - Constitutional General appearance: Present: average body habitus, no acute distress - EENT Eyes: Present: EOMI, scleral icterus ENT: Present: hearing grossly normal - Respiratory Details: breathing is even and unlabored - Cardiovascular Details: skin warm and dry - Integumentary Integumentary: Present: jaundiced - Neurologic Neurologic Comment(s): grossly intact - Musculoskeletal Musculoskeletal: Present: generalized weakness - Psychiatric Psychiatric: Present: A&O x's 3, appropriate affect - Labs CBC & Chem 7: 02/15/23 07:02 02/15/23 07:02 Labs: Abnormal Lab Results - Last 24 Hours (Table) 02/14/23 02/14/23 02/15/23 Range/Units 16:55 20:24 07:02 RBC 2.52 L (4.40-5.60) X 10*6/uL Hgb 9.2 L (13.0-17.0) g/dL Hct 28.2 L (39.6-50.0) % MCV 111.9 H (80.0-97.0) fL MCH 36.5 H (27.0-32.0) pg RDW 16.2 H (11.5-14.5) % Plt Count 83 L (140-440) X 10*3/uL Plt Count Comment DECREASED A Immature Gran # 0.06 H (0.00-0.04) X 10*3/uL Lymphocytes # 0.76 L (0.90-5.00) X 10*3/uL PT (9.0-12.0) sec INR (<1.2) APTT (22.0-30.0) sec Anion Gap (10.00-18.00) mmol/L BUN/Creatinine Ratio (12.00-20.00) Ratio Glucose (70-110) mg/dL POC Glucose (mg/dL) 355 H 319 H (70-110) mg/dL Calcium (8.7-10.3) mg/dL Total Bilirubin (0.30-1.20) mg/dL AST (14-35) U/L ALT (10-49) U/L Alkaline Phosphatase (41-126) U/L Total Protein (6.2-8.2) g/dL Albumin (3.8-4.9) g/dL Albumin/Globulin Ratio (1.60-3.17) g/dL 02/15/23 02/15/23 02/15/23 Range/Units 07:02 07:02 07:06 RBC (4.40-5.60) X 10*6/uL Hgb (13.0-17.0) g/dL Hct (39.6-50.0) % MCV (80.0-97.0) fL MCH (27.0-32.0) pg RDW (11.5-14.5) % Plt Count (140-440) X 10*3/uL Plt Count Comment Immature Gran # (0.00-0.04) X 10*3/uL Lymphocytes # (0.90-5.00) X 10*3/uL PT 15.2 H (9.0-12.0) sec INR 1.5 H (<1.2) APTT 32.2 H (22.0-30.0) sec Anion Gap 5.60 L (10.00-18.00) mmol/L BUN/Creatinine Ratio 28.78 H (12.00-20.00) Ratio Glucose 120 H (70-110) mg/dL POC Glucose (mg/dL) 126 H (70-110) mg/dL Calcium 8.0 L (8.7-10.3) mg/dL Total Bilirubin 11.90 H (0.30-1.20) mg/dL AST 76 H (14-35) U/L ALT 80 H (10-49) U/L Alkaline Phosphatase 149 H (41-126) U/L Total Protein 5.0 L (6.2-8.2) g/dL Albumin 2.5 L (3.8-4.9) g/dL Albumin/Globulin Ratio 1.00 L (1.60-3.17) g/dL 02/15/23 Range/Units 11:26 RBC (4.40-5.60) X 10*6/uL Hgb (13.0-17.0) g/dL Hct (39.6-50.0) % MCV (80.0-97.0) fL MCH (27.0-32.0) pg RDW (11.5-14.5) % Plt Count (140-440) X 10*3/uL Plt Count Comment Immature Gran # (0.00-0.04) X 10*3/uL Lymphocytes # (0.90-5.00) X 10*3/uL PT (9.0-12.0) sec INR (<1.2) APTT (22.0-30.0) sec Anion Gap (10.00-18.00) mmol/L BUN/Creatinine Ratio (12.00-20.00) Ratio Glucose (70-110) mg/dL POC Glucose (mg/dL) 210 H (70-110) mg/dL Calcium (8.7-10.3) mg/dL Total Bilirubin (0.30-1.20) mg/dL AST (14-35) U/L ALT (10-49) U/L Alkaline Phosphatase (41-126) U/L Total Protein (6.2-8.2) g/dL Albumin (3.8-4.9) g/dL Albumin/Globulin Ratio (1.60-3.17) g/dL Assessment and Plan (1) HCC (hepatocellular carcinoma) Status: Acute Priority: High Code(s): C22.0 - LIVER CELL CARCINOMA SNOMED Code(s): 637053508 (2) Hypercoagulable state Status: Acute Code(s): D68.59 - OTHER PRIMARY THROMBOPHILIA SNOMED Code(s): 26498323 Plan: HCC -Discussed case with his attending Med Onc Dr. Albert at [facility]. Pt was diagnosed from liver biopsy 11/17. His AFP was 26 at that time. He was started on atezolizumab and bevacizumab 01/09/23, he has had 2 cycles, due for cycle # 3 soon. -Bilirubin higher compared to when diagnosed (around 9, it was 10.7 on admit, 11.9 today) -AFP 26 at diagnosis. Repeat AFP 136 -Pt has just started treatment. When being treated with IO agents there can be pseudo-progression seen early on in treatment. His lab values are suggestive of progressive hepatic failure which can also be seen early in treatment with heavy disease burden in the liver. Pt is receiving supportive care. Will see how hospital course progresses. -GI has seen pt and treating hepatic encephalopathy. Agree with their plan. 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 Attests: I have seen and examined pt, performed H&P, developed impression and plan of care. Discussed with dictator. Agree with documentation, dictated as a scribe.
== END 2023-02-15 13:49 | disposition home or self-care (01) | DRG 441 ==
LOC: EC 09:44 → 5NMEDONC 13:16
PROVIDERS: ADMIT Internal Medicine; ATTEND Internal Medicine
DX: K76.82 Hepatic encephalopathy (principal); G92.8 Other toxic encephalopathy; C22.0 Liver cell carcinoma; D68.59 Other primary thrombophilia; J90 Pleural effusion, not elsewhere classified; R18.8 Other ascites; E72.20 Disorder of urea cycle metabolism, unspecified; T38.0X5A Adverse effect of glucocorticoids and synthetic analogues, initial encounter; I10 Essential (primary) hypertension; K70.9 Alcoholic liver disease, unspecified; R32 Unspecified urinary incontinence; D53.9 Nutritional anemia, unspecified; E11.65 Type 2 diabetes mellitus with hyperglycemia; R74.01 Elevation of levels of liver transaminase levels; K80.20 Calculus of gallbladder without cholecystitis without obstruction; K52.9 Noninfective gastroenteritis and colitis, unspecified; D69.6 Thrombocytopenia, unspecified; F10.11 Alcohol abuse, in remission; Z79.01 Long term (current) use of anticoagulants; Z79.4 Long term (current) use of insulin; Z86.010 Personal history of colon polyps; Z88.0 Allergy status to penicillin
CPT/HCPCS: 36415; 70450; 71046; 76705; 80053; 80306; 81003; 82009; 82105; 82140; 82607; 82746; 83735; 84443; 84484; 85025; 85027; 85610; 85730; 87324; 93005; 94760; 96360; 96361; 99285

== ENCOUNTER 2023-02-19 10:37 | Inpatient (IN) | payer BC ==
[2023-02-19] MEDS ORDERED: SODIUM CHLORIDE 0.9% 500 ML 500 ML IV ONE (10:56)
[2023-02-19 11:22] LABS: Glucose,Whole Blood 118 mg/dL (70-110)
[2023-02-19 11:52] LABS: Anisocytosis Slight; HCT 31.7 % (39.0-53.0); HGB 10.5 gm/dL (13.0-17.5); MCHC 33.2 g/dL (31.0-37.0); MCV 111.4 fL (80.0-100.0); Macrocytosis Marked; Mean Platelet Volume 8.3; RBC 2.84 m/uL (4.30-5.90); RDW 16.8 % (11.5-15.5); WBC 12.2 k/uL (3.8-10.6)
[2023-02-19 11:55] LABS: Platelet Count 96 k/uL (150-450)
[2023-02-19 11:56] LABS: INR 1.6 (<1.2); Partial Thromboplastin Time 27.6 sec (22.0-30.0); Prothrombin Time 16.3 sec (9.0-12.0)
[2023-02-19] MEDS ORDERED: LORazepam 1 MG TAB PO STA (12:04)
[2023-02-19 12:05] LABS: ALT 63 U/L (4-49); AST 73 U/L (17-59); African American GFR (CKD) >90 (>60 ml/min/1.73 sqM); Albumin 2.6 g/dL (3.5-5.0); Alkaline Phosphatase 167 U/L (38-126); Anion Gap 9 mmol/L; Blood Urea Nitrogen 27 mg/dL (9-20); Calcium 8.1 mg/dL (8.4-10.2); Carbon Dioxide 26 mmol/L (22-30); Chloride 102 mmol/L (98-107); Glucose 133 mg/dL (74-99); Non-African American GFR(CKD) >90 (>60 ml/min/1.73 sqM); Potassium 4.2 mmol/L (3.5-5.1); Sodium 137 mmol/L (137-145); Total Bilirubin 12.2 mg/dL (0.2-1.3); Total Protein 6.2 g/dL (6.3-8.2)
[2023-02-19 12:40] LABS: Band Neutrophils % 3 %; Lymphocytes # (M) 0.37 k/uL (1.0-4.8); Monocytes # (M) 0.24 k/uL (0-1.0); Neutrophils % (M) 92 %; Nucleated Red Blood Cells 0 /100 WBC (0-0); Total Cells Counted 100
[2023-02-19 12:41] LABS: Polychromasia Present
--- NOTE | 2023-02-19 14:02 | XR ---
EXAMINATION TYPE: XR chest 2V DATE OF EXAM: 02/19/2023 COMPARISON: 02/12/2023 INDICATION: Altered mental status TECHNIQUE: Frontal and lateral views of the chest are obtained. FINDINGS: The heart size is normal. The pulmonary vasculature is upper limits of normal. There is a moderate right pleural effusion. Minimal left pleural effusion is present. Findings are si milar to comparison.. IMPRESSION: 1. Moderate right and minimal left pleural effusion, stable from comparison.
--- NOTE | 2023-02-19 14:22 | ED ---
Altered Mental Status HPI - General Source: patient, family, EMS, RN notes reviewed, old records reviewed Mode of arrival: EMS Limitations: no limitations - History of Present Illness MD Complaint: altered mental status -: days(s) (2) Consistency of Symptoms: getting worse Context: history of similar presentation Associated Symptoms: incontinence (stool) <Christiano Leavitt - Last Filed: 02/19/23 16:29> <Katherin Farah - Last Filed: 02/19/23 23:57> - General Chief Complaint: Altered Mental Status Stated Complaint: AMS Time Seen by Provider: 02/19/23 10:55 - History of Present Illness Initial Comments: 62-year-old male presents to the emergency room via EMS with his states the patient has had increasing altered mental status over the past 2 days. Does have a history of liver cancer with cirrhosis and diabetes. Blood sugars have been within normal limits at home however she states that patient has been increasingly agitated and having incontinence of stool over the past 2 days. More lethargic today. States just discharged from the hospital last week with similar symptoms. He was mentating normally until yesterday. (Christiano Leavitt) - Related Data Home Medications Medication Instructions Recorded Confirmed Multivitamins, Thera [Multivitamin 1 tab PO DAILY 12/09/22 02/19/23 (formulary)] Insulin Aspart See Protocol SQ AC-TID 02/12/23 02/19/23 Insulin Glargine,Hum.rec.anlog 26 units SQ HS 02/12/23 02/19/23 [Lantus Solostar Pen] Mesalamine [Delzicol] 800 mg PO TID 02/12/23 02/19/23 Omeprazole [PriLOSEC] 40 mg PO DAILY 02/12/23 02/19/23 Loperamide [Imodium] 2 mg PO DAILY 02/19/23 02/19/23 predniSONE See Taper PO DAILY 02/19/23 02/19/23 Allergies Allergy/AdvReac Type Severity Reaction Status Date / Time Penicillins Allergy Rash/Hives Verified 02/19/23 16:26 Review of Systems ROS Other: All systems not noted in ROS Statement are negative. <Christiano Leavitt - Last Filed: 02/19/23 16:29> ROS Other: All systems not noted in ROS Statement are negative. <Katherin Farah - Last Filed: 02/19/23 23:57> ROS Statement: Those systems with pertinent positive or pertinent negative responses have been documented in the HPI. Past Medical History Past Medical History: Cancer, Hypertension, Skin Disorder Additional Past Medical History / Comment(s): colon polyps, liver cancer History of Any Multi-Drug Resistant Organisms: None Reported Past Surgical History: Orthopedic Surgery Additional Past Surgical History / Comment(s): left wrist, colonoscopy, paracentesis Past Anesthesia/Blood Transfusion Reactions: No Reported Reaction Past Psychological History: No Psychological Hx Reported Smoking Status: Never smoker Past Alcohol Use History: None Reported Past Drug Use History: None Reported - Past Family History Mother Family Medical History: Cancer Additional Family Medical History / Comment(s): throat Father Family Medical History: Coronary Artery Disease (CAD) <Christiano Leavitt - Last Filed: 02/19/23 16:29> General Exam Limitations: altered mental status General appearance: alert, in no apparent distress Head exam: Present: atraumatic, normocephalic, normal inspection Eye exam: Present: scleral icterus. Absent: conjunctival injection, nystagmus, periorbital swelling, periorbital tenderness ENT exam: Present: mucous membranes moist Neck exam: Absent: tenderness, meningismus, lymphadenopathy Respiratory exam: Absent: respiratory distress, accessory muscle use Cardiovascular Exam: Present: regular rate GI/Abdominal exam: Absent: tenderness, rigid Extremities exam: Present: pedal edema (3+). Absent: tenderness Neurological exam: Present: alert Psychiatric exam: Present: flat affect Skin exam: Present: warm, dry, other (jaundiced) <Christiano Leavitt - Last Filed: 02/19/23 16:29> Course Vital Signs 02/19/23 02/19/23 02/19/23 10:41 12:12 13:30 Temperature 98.3 F Pulse Rate 95 87 89 Respiratory 18 13 Rate Blood Pressure 126/69 126/69 109/62 O2 Sat by Pulse 98 100 100 Oximetry 02/19/23 15:51 Temperature 98.8 F Pulse Rate 87 Respiratory Rate Blood Pressure 123/65 O2 Sat by Pulse 98 Oximetry Medical Decision Making - Lab Data Result diagrams: 02/19/23 11:08 02/19/23 11:08 <Christiano Leavitt - Last Filed: 02/19/23 16:29> - Lab Data Result diagrams: 02/19/23 11:08 02/19/23 11:08 <Katherin Farah - Last Filed: 02/19/23 23:57> - Medical Decision Making Patient was discharged home on 02/15/2023 with acute hepatic encephalopathy, hepatocellular carcinoma on chemotherapy, hyperbilirubinemia transaminitis, macrocytic anemia At last admission a CT brain was performed showing moderate cerebral atrophy with chronic small vessel disease no acute findings. Ammonia level was 64. Patient was given lactulose and rifaximin with improvement in mental status. They were directed to follow up with their [place] specialists in 1-2 weeks. Today EKG shows sinus rhythm with a ventricular rate of 88, CO interval 0.164, QRS 0.87, QTC 0.398, no concerning changes compared to 02/12/2023. Labs show an increased leukocytosis from previous admission. Hemoglobin and hematocrit are stable. Electrolytes not significantly changed. Ammonia level within normal limits at 23. X-ray interpreted by me shows a right pleural effusion. Radiologist impression moderate right and minimal left pleural effusion stable from comparison dated 02/12/2023. Patient remains altered and not responsive to verbal stimuli. CT was repeated without contrast showing cerebral atrophy without change. No hemorrhage. Patient will be admitted to the hospital for altered mental status. I did dis cuss with his palliative care options. Case discussed with Dr. Farah. at bedside states PCP Dr. Loo [facility] are out of [place]: Nephrology Dr Rivera Hepatic Dr [place] Oncologist Dr Halima Albert Was pt. sent in by a medical professional or institution (, PA, ARCHEOLOGY FACULTY MEMBER, urgent care, hospital, or custodial...) When possible be specific @ -No Did you speak to anyone other than the patient for history (EMS, parent, family, police, friend...)? What history was obtained from this source @ - Did you review nursing and triage notes (agree or disagree)? Why? @ -I reviewed and agree with nursing and triage notes Were old charts reviewed (outside hosp., previous admission, EMS record, old EKG, old radiological studies, urgent care reports/EKG's, custodial records)? Report findings @ -Previous admission labs, CT scan, EKG, discharge summary Differential Diagnosis (chest pain, altered mental status, abdominal pain women, abdominal pain men, vaginal bleeding, weakness, fever, dyspnea, syncope, headache, dizziness, GI bleed, back pain, seizure, CVA, palpatations, mental health, musculoskeletal)? @ -Differential Altered Mental Status: Hypoglycemia, DKA, hypercapnia, ETOH, overdose, CO poisoning, trauma, myxedema coma, HTN encephalopathy, infection, encephalitis, psychosis, intercranial hemorrhage, hepatic encephalopathy, meningitis, CVA, this is not meant to be an all-inclusive list EKG interpreted by me (3pts min.). @ -As above X-rays interpreted by me (1pt min.). @ -Yes as above CT interpreted by me (1pt min.). @ -Yes and no evidence of intracranial mass, bleed or midline shift U/S interpreted by me (1pt. min.). @ -None done What testing was considered but not performed or refused? (CT, X-rays, U/S, labs)? Why? @ -None What meds were considered but not given or refused? Why? @ -Lactulose was considered however ammonia level within normal limits Did you discuss the management of the patient with other professionals (professionals i.e. , PA, ARCHEOLOGY FACULTY MEMBER, lab, RT, psych nurse, child protective services social worker, tip out worker, teacher, low altitude air defense officer, corrections caseworker)? Give summary @ -No Was smoking cessation discussed for >3mins.? @ -No Was critical care preformed (if so, how long)? @ -No Were there social determinants of health that impacted care today? How? (Homelessness, low income, unemployed, alcoholism, drug addiction, transportation, low edu. Level, literacy, decrease access to med. care, group home, rehab)? @ -No Was there de-escalation of care discussed even if they declined (Discuss DNR or withdrawal of care, Hospice)? DNR status @ -Did discuss with patient's considering palliative care What co-morbidities impacted this encounter? (DM, HTN, Smoking, COPD, CAD, Cancer, CVA, ARF, Chemo, Hep., AIDS, mental health diagnosis, sleep apnea, morbid obesity)? @ -Hepatic carcinoma, cirrhosis, diabetes, metabolic encephalopathy Was patient admitted / discharged? Hospital course, mention meds given and route, prescriptions, significant lab abnormalities, going to OR and other pertinent info. @ -Admitted Undiagnosed new problem with uncertain prognosis? @ -No Drug Therapy requiring intensive monitoring for toxicity (Heparin, Nitro, Insulin, Cardizem)? @ -No Were any procedures done? @ -No Diagnosis/symptom? @ -Hepatic carcinoma, cirrhosis, metabolic encephalopathy, altered mental status Acute, or Chronic, or Acute on Chronic? @ -Acute on chronic Uncomplicated (without systemic symptoms) or Complicated (systemic symptoms)? @ -Complicated Side effects of treatment? @ -No Exacerbation, Progression, or Severe Exacerbation? @ -Progression Poses a threat to life or bodily function? How? (Chest pain, [place], [place], pneumonia, PE, COPD, DKA, ARF, appy, cholecystitis, CVA, Diverticulitis, Homicidal, Suicidal, threat to staff... and all critical care pts) @ -Yes altered mental status with encephalopathy from cirrhosis and hepatic carcinoma . (Christiano Leavitt) - Lab Data Lab Results 02/19/23 02/19/23 02/19/23 Range/Units 11:08 11:08 11:08 WBC 12.2 H (3.8-10.6) k/uL RBC 2.84 L (4.30-5.90) m/uL Hgb 10.5 L (13.0-17.5) gm/dL Hct 31.7 L (39.0-53.0) % MCV 111.4 H (80.0-100.0) fL MCH 37.0 H (25.0-35.0) pg MCHC 33.2 (31.0-37.0) g/dL RDW 16.8 H (11.5-15.5) % Plt Count 96 L (150-450) k/uL MPV 8.3 Neutrophils % (Manual) 92 % Band Neuts % (Manual) 3 % Lymphocytes % (Manual) 3 % Monocytes % (Manual) 2 % Neutrophils # (Manual) 11.50 H (1.3-7.7) k/uL Lymphocytes # (Manual) 0.37 L (1.0-4.8) k/uL Monocytes # (Manual) 0.24 (0-1.0) k/uL Nucleated RBCs 0 (0-0) /100 WBC Manual Slide Review Performed Polychromasia Present Anisocytosis Slight Macrocytosis Marked A PT 16.3 H (9.0-12.0) sec INR 1.6 H (<1.2) APTT 27.6 (22.0-30.0) sec Sodium 137 (137-145) mmol/L Potassium 4.2 (3.5-5.1) mmol/L Chloride 102 (98-107) mmol/L Carbon Dioxide 26 (22-30) mmol/L Anion Gap 9 mmol/L BUN 27 H (9-20) mg/dL Creatinine 0.92 (0.66-1.25) mg/dL Est GFR (CKD-EPI)AfAm >90 (>60 ml/min/1.73 sqM) Est GFR (CKD-EPI)NonAf >90 (>60 ml/min/1.73 sqM) Glucose 133 H (74-99) mg/dL POC Glucose (mg/dL) (70-110) mg/dL POC Glu Fisher Spear ID Calcium 8.1 L (8.4-10.2) mg/dL Total Bilirubin 12.2 H (0.2-1.3) mg/dL AST 73 H (17-59) U/L ALT 63 H (4-49) U/L Alkaline Phosphatase 167 H (38-126) U/L Ammonia (<30) umol/L Total Protein 6.2 L (6.3-8.2) g/dL Albumin 2.6 L (3.5-5.0) g/dL 02/19/23 02/19/23 02/19/23 Range/Units 11:08 11:13 14:41 WBC (3.8-10.6) k/uL RBC (4.30-5.90) m/uL Hgb (13.0-17.5) gm/dL Hct (39.0-53.0) % MCV (80.0-100.0) fL MCH (25.0-35.0) pg MCHC (31.0-37.0) g/dL RDW (11.5-15.5) % Plt Count (150-450) k/uL MPV Neutrophils % (Manual) % Band Neuts % (Manual) % Lymphocytes % (Manual) % Monocytes % (Manual) % Neutrophils # (Manual) (1.3-7.7) k/uL Lymphocytes # (Manual) (1.0-4.8) k/uL Monocytes # (Manual) (0-1.0) k/uL Nucleated RBCs (0-0) /100 WBC Manual Slide Review Polychromasia Anisocytosis Macrocytosis PT (9.0-12.0) sec INR (<1.2) APTT (22.0-30.0) sec Sodium (137-145) mmol/L Potassium (3.5-5.1) mmol/L Chloride (98-107) mmol/L Carbon Dioxide (22-30) mmol/L Anion Gap mmol/L BUN (9-20) mg/dL Creatinine (0.66-1.25) mg/dL Est GFR (CKD-EPI)AfAm (>60 ml/min/1.73 sqM) Est GFR (CKD-EPI)NonAf (>60 ml/min/1.73 sqM) Glucose (74-99) mg/dL POC Glucose (mg/dL) 118 H 138 H (70-110) mg/dL POC Glu Fisher Spear ID Calcium (8.4-10.2) mg/dL Total Bilirubin (0.2-1.3) mg/dL AST (17-59) U/L ALT (4-49) U/L Alkaline Phosphatase (38-126) U/L Ammonia 23 (<30) umol/L Total Protein (6.3-8.2) g/dL Albumin (3.5-5.0) g/dL Disposition Decision Date: 02/19/23 Decision Time: 16:23 <Christiano Leavitt - Last Filed: 02/19/23 16:29> <Katherin Farah - Last Filed: 02/19/23 23:57> Clinical Impression: Altered mental status, Cirrhosis of liver, Hepatic carcinoma, Metabolic encephalopathy Disposition: ADMITTED IP TO THIS HOSP
[2023-02-19 14:50] LABS: Glucose,Whole Blood 138 mg/dL (70-110)
[2023-02-19] MEDS ORDERED: NALOXONE 0.4 MG/ML 1 ML VIAL IV PRN (14:56)
--- NOTE | 2023-02-19 15:15 | CT ---
EXAMINATION TYPE: CT brain wo con DATE OF EXAM: 02/19/2023 COMPARISON: 02/12/2023 HISTORY: ams, hx of liver ca CT DLP: 1247.4 mGycm Automated exposure control for dose reduction was used. Images obtained of the brain with no contrast. There is cerebral cortical atrophy. There is no mass effect or midline shift. No sign of intracranial hemorrhage. Calvarium is intact. Sella turcica is normal. IMPRESSION: Cerebral atrophy without change. No hemorrhage
[2023-02-19] MEDS ORDERED: LACTULOSE 20 GM/30 ML CUP PO PRN (15:45)
[2023-02-19] MEDS ORDERED: HYDROcodone/APAP 5-325MG 1 EACH TAB PO PRN (15:45)
[2023-02-19] MEDS ORDERED: ONDANSETRON 4 MG/2 ML VIAL IVP PRN (15:45)
[2023-02-19] MEDS ORDERED: ACETAMINOPHEN TAB 325 MG TAB PO PRN (15:45)
--- NOTE | 2023-02-19 15:52 | P.HPIM ---
History of Present Illness H&P Date: 02/19/23 Patient is a 62-year-old male with history of hepatocellular carcinoma on chemotherapy, liver cirrhosis, diabetes presenting with worsening confusion. Patient was recently discharged on 02/15/23 for hepatic encephalopathy. Patient is at bedside. Patient is a poor historian. claims that he was doing okay for 1 day at home, was having multiple bowel movements. However, yesterday evening, he began to get more confused and began to soil himself. She had tried calling his oncologist and compression molding machine operator, but was unable to make any appointment. She denies any other recent changes besides confusion. She denies any recent fevers, and complaining of any chest pain, shortness breath, abdominal pain, nausea, vomiting, constipation, or urinary complaints. In the ED, he was afebrile at 98.3, pulse 95, respiratory rate 18, blood pressure 126/69, saturating at 98% on room air. His laboratory workup showed WBC 12.2, hemoglobin 10.5, platelet 96, INR 1.6, BUN 27, creatinine 0.9 to, glucose 133, total bilirubin 12.2, elevated AST and ALT, ammonia 23. Had extensive discussion with , now considering comfort care measures only. Patient admited for comfort care measures, with consultation for hospice. Pertinent positives and negatives as discussed in HPI, a complete review of systems was performed and all other systems are negative. Patient seen and examined at bedside. Vital signs reviewed General: nontoxic, no distress, older than stated age, lethargic Derm: warm, dry, no jaundice Head: atraumatic, normocephalic, symmetric Eyes: EOMI, no lid lag, scleral icterus, pupils equal round reactive to light ENT: Nose and ears atraumatic Neck: No thyromegaly, supple Mouth: no lip lesion, mucus membranes moist Cardiovascular: S1S2 reg, no murmur, no edema Lungs: clear to auscultation bilateral, no rhonchi, no rales, no wheeze, no accessory muscle use Abdominal: soft, distended, nontender to palpation, no guarding, no appreciable organomegaly Ext: no gross muscle atrophy, muscle strength muscle strength 4 out of 5 in all 4 extremities, no contractures Neuro: No focal deficits Psych: Unable Assessment/Plan: Acute metabolic encephalopathy, hepatic Decompensated liver cirrhosis History of hepatocellular carcinoma, on chemotherapy Leukocytosis Macrocytic anemia Thrombocytopenia Elevated INR Transaminitis Hyperbilirubinemia -Patient is now comfort care measures only -Hospice consulted -Pain control with Tylenol 650 mg every 6 hours for mild pain as needed -[place] 5 every 6 hours as needed for moderate to severe pain, IV morphine 4 mg every 4 hours as needed for breakthrough pain -IV Ativan 0.5 mg every 6 hours as needed for anxiety The patient is admitted with an anticipated greater than 2 midnight stay as inpatient status for hospice care. Surrogate decision-maker: CODE STATUS: DNR/DNI Anticipated discharge date: Pending clinical course Anticipated discharge place: Pending clinical course A total of 75 minutes was spent on the care of this complex patient more than 50% of the time was spent in counseling and care coordination. Past Medical History Past Medical History: Cancer, Hypertension, Skin Disorder Additional Past Medical History / Comment(s): colon polyps, liver cancer History of Any Multi-Drug Resistant Organisms: None Reported Past Surgical History: Orthopedic Surgery Additional Past Surgical History / Comment(s): left wrist, colonoscopy, paracentesis Past Anesthesia/Blood Transfusion Reactions: No Reported Reaction Past Psychological History: No Psychological Hx Reported Smoking Status: Never smoker Past Alcohol Use History: None Reported Past Drug Use History: None Reported - Past Family History Mother Family Medical History: Cancer Additional Family Medical History / Comment(s): throat Father Family Medical History: Coronary Artery Disease (CAD) Medications and Allergies Home Medications Medication Instructions Recorded Confirmed Type Multivitamins, Thera [Multivitamin 1 tab PO DAILY 12/09/22 02/12/23 History (formulary)] Insulin Aspart See Protocol SQ AC-TID 02/12/23 02/12/23 History Insulin Glargine,Hum.rec.anlog 26 units SQ HS 02/12/23 02/12/23 History [Lantus Solostar Pen] Mesalamine [Delzicol] 800 mg PO TID 02/12/23 02/12/23 History Omeprazole [PriLOSEC] 40 mg PO DAILY 02/12/23 02/12/23 History Rifaximin [Xifaxan] 550 mg PO BID #60 tab 02/15/23 Rx Allergies Allergy/AdvReac Type Severity Reaction Status Date / Time Penicillins Allergy Rash/Hives Verified 02/19/23 10:47 Physical Exam Vitals: Vital Signs Temp Pulse Resp BP Pulse Ox 02/19/23 13:30 89 13 109/62 100 02/19/23 12:12 87 126/69 100 02/19/23 10:41 98.3 F 95 18 126/69 98 Intake and Output 02/19/23 02/19/23 02/19/23 06:59 14:59 22:59 Other: Weight 90.718 kg Results CBC & Chem 7: 02/19/23 11:08 02/19/23 11:08 Labs: Abnormal Lab Results - Last 24 Hours (Table) 02/19/23 02/19/23 02/19/23 Range/Units 11:08 11:08 11:08 WBC 12.2 H (3.8-10.6) k/uL RBC 2.84 L (4.30-5.90) m/uL Hgb 10.5 L (13.0-17.5) gm/dL Hct 31.7 L (39.0-53.0) % MCV 111.4 H (80.0-100.0) fL MCH 37.0 H (25.0-35.0) pg RDW 16.8 H (11.5-15.5) % Plt Count 96 L (150-450) k/uL Neutrophils # (Manual) 11.50 H (1.3-7.7) k/uL Lymphocytes # (Manual) 0.37 L (1.0-4.8) k/uL Macrocytosis Marked A PT 16.3 H (9.0-12.0) sec INR 1.6 H (<1.2) BUN 27 H (9-20) mg/dL Glucose 133 H (74-99) mg/dL POC Glucose (mg/dL) (70-110) mg/dL Calcium 8.1 L (8.4-10.2) mg/dL Total Bilirubin 12.2 H (0.2-1.3) mg/dL AST 73 H (17-59) U/L ALT 63 H (4-49) U/L Alkaline Phosphatase 167 H (38-126) U/L Total Protein 6.2 L (6.3-8.2) g/dL Albumin 2.6 L (3.5-5.0) g/dL 02/19/23 02/19/23 Range/Units 11:13 14:41 WBC (3.8-10.6) k/uL RBC (4.30-5.90) m/uL Hgb (13.0-17.5) gm/dL Hct (39.0-53.0) % MCV (80.0-100.0) fL MCH (25.0-35.0) pg RDW (11.5-15.5) % Plt Count (150-450) k/uL Neutrophils # (Manual) (1.3-7.7) k/uL Lymphocytes # (Manual) (1.0-4.8) k/uL Macrocytosis PT (9.0-12.0) sec INR (<1.2) BUN (9-20) mg/dL Glucose (74-99) mg/dL POC Glucose (mg/dL) 118 H 138 H (70-110) mg/dL Calcium (8.4-10.2) mg/dL Total Bilirubin (0.2-1.3) mg/dL AST (17-59) U/L ALT (4-49) U/L Alkaline Phosphatase (38-126) U/L Total Protein (6.3-8.2) g/dL Albumin (3.5-5.0) g/dL
--- NOTE | 2023-02-19 15:54 | P.PN ---
Progress Note - Text Progress Note Date: 02/19/23 Advanced Care Planning: Diagnoses: Acute metabolic encephalopathy Decompensated liver cirrhosis Hepatocellular carcinoma Discussion: Person(s) present and participating in discussion: and patient Summary: does not anticipate him getting better, she would not like to pursue further therapy given poor prognosis. Patient to be on comfort care measures only. Questions answered. Hospice consulted. A total of 35 minutes of face to face time was spent discussing advanced care planning.
[2023-02-19] MEDS: LORazepam 2 MG/ML INJ IV PRN (21:36)
[2023-02-20] MEDS: MORPHINE SULFATE 4 MG/ML SYRINGE IVP PRN (03:14)
[2023-02-20 08:17] VITALS: BP 119/68; TEMP 97.6
--- NOTE | 2023-02-20 17:15 | P.PN ---
Subjective Progress Note Date: 02/20/23 Patient is a 62-year-old male with history of hepatocellular carcinoma on chemotherapy, liver cirrhosis, diabetes presenting with worsening confusion. Patient was recently discharged on 02/15/23 for hepatic encephalopathy. Patient is at bedside. Patient is a poor historian. claims that he was doing okay for 1 day at home, was having multiple bowel movements. However, yesterday evening, he began to get more confused and began to soil himself. She had tried calling his oncologist and health professor, but was unable to make any appointment. She denies any other recent changes besides confusion. She denies any recent fevers, and complaining of any chest pain, shortness breath, abdo regina pain, nausea, vomiting, constipation, or urinary complaints. In the ED, he was afebrile at 98.3, pulse 95, respiratory rate 18, blood pressure 126/69, saturating at 98% on room air. His laboratory workup showed WBC 12.2, hemoglobin 10.5, platelet 96, INR 1.6, BUN 27, creatinine 0.9 to, glucose 133, total bilirubin 12.2, elevated AST and ALT, ammonia 23. Had extensive discussion with , now considering comfort care measures only. Patient admited for comfort care measures, with consultation for hospice. Patient is seen and examined. No acute events overnight. He appears to be com fortable. He has no complaints. General: nontoxic, no distress, older than stated age, lethargic Derm: warm, dry, + jaundice Head: atraumatic, normocephalic, symmetric Eyes: EOMI, no lid lag, scleral icterus ENT: Nose and ears atraumatic Neck: No thyromegaly, supple Mouth: no lip lesion, mucus membranes moist Cardiovascular: S1S2 reg, no murmur, no edema Lungs: clear to auscultation bilateral, no rhonchi, no rales, no wheeze, no accessory muscle use Abdominal: soft, distended, nontender to palpation, no guarding, no appreciable organomegaly Ext: no gross muscle atrophy, muscle strength muscle strength 4 out of 5 in all 4 extremities, no contractures Neuro: No focal deficits Psych: Unable to assess Acute metabolic encephalopathy, hepatic Decompensated liver cirrhosis History of hepatocellular carcinoma, on chemotherapy Leukocytosis Macrocytic anemia Thrombocytopenia Elevated INR Transaminitis Hyperbilirubinemia Based on my assessment of this patient, this patient meets a moderate complexity level of care. Patient has a history of hepatocellular carcinoma and liver cirrhosis on chemotherapy with severe exacerbation or progression of disease which poses a threat to life or bodily function. He was recently admitted for altered mentation thought to be due to hyperammonemia. He has deteriorated and deconditioned significantly and now family is considering end-of-life care. I have reviewed the following network pricing consultant notes: None. I have reviewed the results of the following tests: None. I have ordered the following tests: None. I have discussed the care of this patient with the following independent historian: Case was discussed with the who stated that the patient deteriorated and deconditioned significantly and now family is considering end-of-life care. Case was discussed with the environmental law professor. Plan is to set up equipment at home for hopeful discharge to hospice at home tomorrow. I have independently interpreted the following test below: None. I have discussed the management of this patient with the following physician: None. This patient has a moderate risk of morbidity due to the following reasons: Patient has a history of hepatocellular carcinoma and liver cirrhosis on chemotherapy with severe exacerbation or progression of disease which poses a threat to life or bodily function. He was recently admitted for altered mentation thought to be due to hyperammonemia. He has deteriorated and deconditioned significantly and now family is considering end-of-life care. Continue morphine 4 mg IV every 4 hours as needed for severe pain. Zofran 4 mg IV every 8 hours as needed for nausea and vomiting. Ativan 0.5 mg IV every 6 hours as needed for anxiety. Objective - Vital Signs Vital signs: Vital Signs Temp 97.6 F 02/20/23 08:00 Pulse 81 02/20/23 08:00 Resp 16 02/20/23 08:00 BP 119/68 02/20/23 08:00 Pulse Ox 98 02/20/23 08:00 FiO2 Intake & Output 02/19/23 02/20/23 02/20/23 18:59 06:59 18:59 Weight 90.718 kg Other: Voiding Method Diaper Diaper # Voids 1 3 1 - Labs CBC & Chem 7: 02/19/23 11:08 02/19/23 11:08
[2023-02-20] MEDS: LORazepam 2 MG/ML INJ IV PRN (23:07)
[2023-02-21] MEDS: MORPHINE SULFATE 4 MG/ML SYRINGE IVP PRN (01:13)
[2023-02-21] MEDS: LORazepam 2 MG/ML INJ IV PRN (06:48)
[2023-02-21 09:05] VITALS: PULSE 91; RESP 7
--- NOTE | 2023-02-21 11:12 | P.DS ---
Providers Date of admission: 02/19/23 15:45 Expected date of discharge: 02/21/23 Attending physician: Jono Mendoza MD [facility] Course: Patient is a 62-year-old male with history of hepatocellular carcinoma on chemotherapy, liver cirrhosis, diabetes presenting with worsening confusion. Patient was recently discharged on 02/15/23 for hepatic encephalopathy. Patient is at bedside. Patient is a poor historian. claims that he was doing okay for 1 day at home, was having multiple bowel movements. However, yesterday evening, he began to get more confused and began to soil himself. She had tried calling his oncologist and infant childcare provider, but was unable to make any appointment. She denies any other recent changes besides confusion. She denies any recent fevers, and complaining of any chest pain, shortness breath, abdominal pain, nausea, vomiting, constipation, or urinary complaints. In the ED, he was afebrile at 98.3, pulse 95, respiratory rate 18, blood pressure 126/69, saturating at 98% on room air. His laboratory workup showed WBC 12.2, hemoglobin 10.5, platelet 96, INR 1.6, BUN 27, creatinine 0.9 to, glucose 133, total bilirubin 12.2, elevated AST and ALT, ammonia 23. Had extensive discussion with , now considering comfort care measures only. Patient admited for comfort care measures, with consultation for hospice. Patient is seen and examined. No acute events overnight. He is more lethargic today. He appears comfortable. Patient was discharged home with hospice on 02/21. General: nontoxic, no distress, older than stated age, lethargic Derm: warm, dry, + jaundice Head: atraumatic, normocephalic, symmetric Eyes: EOMI, no lid lag, scleral icterus ENT: Nose and ears atraumatic Neck: No thyromegaly, supple Mouth: no lip lesion, mucus membranes moist Cardiovascular: Good distal perfusion all 4 extremities Lungs: Labored breathing Ext: no gross muscle atrophy, muscle strength muscle strength 4 out of 5 in all 4 extremities, no contractures Neuro: Unable to assess Psych: Unable to assess Discharge diagnosis: Acute metabolic encephalopathy, hepatic Decompensated liver cirrhosis History of hepatocellular carcinoma, on chemotherapy Leukocytosis Macrocytic anemia Thrombocytopenia Elevated INR Transaminitis Hyperbilirubinemia This complex discharge took 35 minutes to complete. Patient Condition at Discharge: Poor Plan - Discharge Summary New Discharge Prescriptions: New Lactulose [Cephulac] 20 gm PO DAILY PRN ml PRN Reason: Constipation Continue Insulin Aspart See Protocol SQ AC-TID Loperamide [Imodium] 2 mg PO DAILY Discontinued Multivitamins, Thera [Multivitamin (formulary)] 1 tab PO DAILY Mesalamine [Delzicol] 800 mg PO TID Omeprazole [PriLOSEC] 40 mg PO DAILY Insulin Glargine,Hum.rec.anlog [Lantus Solostar Pen] 26 units SQ HS predniSONE See Taper PO DAILY Discharge Medication List Insulin Aspart See Protocol SQ AC-TID 02/12/23 [History] Loperamide [Imodium] 2 mg PO DAILY 02/19/23 [History] Lactulose [Cephulac] 20 gm PO DAILY PRN ml 02/21/23 [Rx] Follow up Appointment(s)/Referral(s): [facility], [NON-STAFF] - 1 Week Corby Loo DO [Primary Care Provider] - 1-2 days Discharge Disposition: HOME WITH HOSPICE
== END 2023-02-21 12:21 | disposition still patient (30) | DRG 435 ==
LOC: EC 10:37 → 5NMEDONC 15:45
PROVIDERS: ADMIT Internal Medicine; ATTEND Internal Medicine
DX: C22.0 Liver cell carcinoma (principal); G93.41 Metabolic encephalopathy; R17 Unspecified jaundice; J90 Pleural effusion, not elsewhere classified; Z66 Do not resuscitate; Z51.5 Encounter for palliative care; I10 Essential (primary) hypertension; K74.60 Unspecified cirrhosis of liver; Z85.05 Personal history of malignant neoplasm of liver; D53.9 Nutritional anemia, unspecified; R74.01 Elevation of levels of liver transaminase levels; D69.6 Thrombocytopenia, unspecified; G31.89 Other specified degenerative diseases of nervous system; K76.82 Hepatic encephalopathy; R79.1 Abnormal coagulation profile; Z87.19 Personal history of other diseases of the digestive system; Z86.010 Personal history of colon polyps
CPT/HCPCS: 36415; 70450; 71046; 80053; 82140; 85025; 85610; 85730; 96360; 99285